=== PATIENT | male | born 1960 | race Caucasian/White ===

== ENCOUNTER 2019-09-25 01:36 | Outpatient (CLI) | payer OTHER, SELFPAY ==
[2019-09-25 17:56] LABS: SARS-CoV-2 RNA PCR Negative
== END 2019-09-25 01:37 | disposition home or self-care (01) ==
LOC: ANHCOVIDDT 01:36
PROVIDERS: PCP Family Medicine; Visit Provider Internal Medicine Gastroenterology
DX: Z01.818 Encounter for other preprocedural examination (principal); Z11.59 Encounter for screening for other viral diseases
CPT/HCPCS: 87635; C9803; U0003

== ENCOUNTER 2019-09-27 02:05 | Day surgery (SDC) | payer OTHER, SELFPAY ==
[2019-09-21 10:25] VITALS: BMI 24.9
[2019-09-27] MEDS: LACTATED RINGERS 1,000 ML 150 ML IV CONT (10:05)
[2019-09-27 10:18] VITALS: BP 123/76; PULSE 82; RESP 16; TEMP 36.8; O2SAT 97
--- NOTE | 2019-09-27 10:37 | WPDANESEPPF ---
Anes - Initial Pre Proc Eval Procedure: Operation Date: 09/27/19 10:30 Proposed Procedures p Screening Colonoscopy - Ck Vazquez DO Date/Time: 09/27/19 10:37 Surgeon: Ck Vazquez DO Pre Op Diagnosis: Neoplasm Screening Patient Data Age: 58 Gender: M Height: 5 ft 11 in Weight: 76.1 kg Last Vital Signs Temp 98.2 F 09/27/19 10:18 Pulse 82 09/27/19 10:18 Resp 16 09/27/19 10:18 BP 123/76 09/27/19 10:18 Pulse Ox 97 09/27/19 10:18 Allergies Allergy/AdvReac Type Severity Reaction Status Date / Time metoclopramide AdvReac Severe seizures Verified 09/27/19 09:57 Home Medications Medication Instructions Recorded Confirmed Type dicyclomine 20 mg tablet 20 mg PO QID #360 tablet 01/01/19 09/27/19 Rx prochlorperazine maleate 10 mg 10 mg PO Q8H PRN #90 tablet 01/01/19 09/27/19 Rx tablet lorazepam 1 mg tablet 1 mg PO BID PRN #60 tablet 09/04/19 09/27/19 Rx Patient hx anesthesia problems: none Family hx anesthesia problems: none PMFSH Social History Social History (Updated 08/17/19 @ 09:43 by Alise Sanz) Smoking packs per day: 2 Smoking cigarettes per day: 40.0 Years smoked: 20 Smoking pack-years: 40.00 Smoking status: Former smoker Tobacco type: cigarettes Second hand tobacco smoke exposure: No Smoking end date: 02/28/90 Alcohol intake: never Substance use: never Substance use type: does not use Gender identity (if verbalized by the patient): Male Anes - Eval Final PreProcedure Day of Procedure 09/27/19 10:37 Patient weight: normal Heart: regular rate and rhythm Lungs: clear to auscultation Airway: Mallampati scale class II Neurological: alert and oriented Last oral intake: >/= 8 hours ASA classification: II Emergent: no Anesthetic plan: proceed Anesthesia type and monitoring: general GIVS and standard monitoring Informed Consent: The patient's anesthetic plan and its attendant risks and benefits were discussed with the patient/family/POA. Questions were solicited and answers provided to the satisfaction of the patient/family/POA.
--- NOTE | 2019-09-27 10:55 | PM.IMHP ---
H&P: HPI History of Present Illness Chief complaint: Neoplasm Screening Narrative: Reason for visit colonoscopy. This very pleasant gentleman is here for evaluation at the request of his primary physician. Impression: Screening colonoscopy. Recommendation: Colonoscopy. History: Surface antigen is here for screening colonoscopy. His last colonoscopy was several years ago. His GI review systems unremarkable except for occasional diarrhea. Physical examination: General: very pleasant patient in no acute distress. HEENT: Head was normocephalic sclerae is clear mouth without masses neck was supple. Heart: Rate rhythm regular without S3 or S4. Lungs: CTA. Abdomen: Soft with no guarding or rigidity. Bowel sounds were active. Neurologic: Cranial nerves 2 through 12 intact. No focal defects. No clonus. Musculoskeletal system: Revealed no joint tenderness or swelling no muscle atrophy. Extremities: Reveal no significant edema. Skin: Warm and dry with normal turgor. Mental status: intact. Patient is alert and oriented. Review of Systems Review of Systems: All systems reviewed & are unremarkable except as noted in HPI and below PMFSH Past Medical History Medical History IFG (impaired fasting glucose) NOE (obstructive sleep apnea) PTSD (post-traumatic stress disorder) Pure hyperglyceridemia Surgical History Surgical History (Updated 09/27/19 @ 10:57 by Ck Vazquez DO) H/O colonoscopy Social History Social History (Updated 08/17/19 @ 09:43 by Alise Sanz) Smoking packs per day: 2 Smoking cigarettes per day: 40.0 Years smoked: 20 Smoking pack-years: 40.00 Smoking status: Former smoker Tobacco type: cigarettes Second hand tobacco smoke exposure: No Smoking end date: 02/28/90 Alcohol intake: never Substance use: never Substance use type: does not use Gender identity (if verbalized by the patient): Male Meds Home Medications and Allergies Home Medications Medication Instructions Recorded Confirmed Type dicyclomine 20 mg tablet 20 mg PO QID #360 tablet 01/01/19 09/27/19 Rx prochlorperazine maleate 10 mg 10 mg PO Q8H PRN #90 tablet 01/01/19 09/27/19 Rx tablet lorazepam 1 mg tablet 1 mg PO BID PRN #60 tablet 09/04/19 09/27/19 Rx Allergies Allergy/AdvReac Type Severity Reaction Status Date / Time metoclopramide AdvReac Severe seizures Verified 09/27/19 09:57 Vital Signs Vital Signs - 24 hr 09/27/19 10:18 Temperature 36.8 C Pulse Rate 82 Respiratory Rate 16 Blood Pressure 123/76 Pulse Oximetry 97
[2019-09-27 11:26] VITALS: BP 87/55; PULSE 65; RESP 20; O2SAT 97
[2019-09-27 11:36] VITALS: BP 85/54; PULSE 60; RESP 21; O2SAT 96
--- NOTE | 2019-09-27 11:40 | PM.IMHP ---
H&P: HPI History of Present Illness Chief complaint: Neoplasm Screening Narrative: Reason for visit EGD. Very pleasant gentleman seen at the request of the primary physician. Impression: this very pleasant gentleman is here for endoscopy to assess for underlying reflux disease. He complains of a bad taste in his mouth. He also has complaints of atypical chest pain. Patient does have a history of chronic diarrhea , especially in the morning. This may be secondary lying IBS. Underlying inflammatory neoplastic disease should be excluded. Patient does have a history of colon polyps. NOE. Nasal polyps. Asthma. Degenerative joint disease. Chronic back pain. Status post surgery. Recommendation: EGD. Colonoscopy will be scheduled. History: Three pleasant gentleman is being evaluated for a bad taste in mouth. Patient denies any heartburn, dysphagia or odynophagia. Complains of occasional sore throat. If he does have this chest pain that occurs after he eats. She had transient nature. The chest pain isn't exertional related. Denies any associated shortness of breath, dyspnea on exertion, nausea, diaphoresis or palpitations. The patient is here for an EGD to evaluate for allowing reflux disease. Patient reports diarrhea After awakening in the morning. Hematochezia, melena and acholic stools the night. He has a history of polyps. Physical examination: General: very pleasant patient in no acute distress. HEENT: Head was normocephalic sclerae is clear mouth without masses neck was supple. Heart: Rate rhythm regular without S3 or S4. Lungs: CTA. Abdomen: Soft with no guarding or rigidity. Bowel sounds were active. Neurologic: Cranial nerves 2 through 12 intact. No focal defects. No clonus. Musculoskeletal system: Revealed no joint tenderness or swelling no muscle atrophy. Extremities: Reveal no significant edema. Skin: Warm and dry with normal turgor. Mental status: intact. Patient is alert and oriented. Review of Systems Review of Systems: All systems reviewed & are unremarkable except as noted in HPI and below PMFSH Past Medical History Medical History IFG (impaired fasting glucose) NOE (obstructive sleep apnea) PTSD (post-traumatic stress disorder) Pure hyperglyceridemia Surgical History Surgical History H/O colonoscopy Social History Social History (Updated 08/17/19 @ 09:43 by Alise Sanz) Smoking packs per day: 2 Smoking cigarettes per day: 40.0 Years smoked: 20 Smoking pack-years: 40.00 Smoking status: Former smoker Tobacco type: cigarettes Second hand tobacco smoke exposure: No Smoking end date: 02/28/90 Alcohol intake: never Substance use: never Substance use type: does not use Gender identity (if verbalized by the patient): Male Meds Home Medications and Allergies Home Medications Medication Instructions Recorded Confirmed Type dicyclomine 20 mg tablet 20 mg PO QID #360 tablet 01/01/19 09/27/19 Rx prochlorperazine maleate 10 mg 10 mg PO Q8H PRN #90 tablet 01/01/19 09/27/19 Rx tablet lorazepam 1 mg tablet 1 mg PO BID PRN #60 tablet 09/04/19 09/27/19 Rx Allergies Allergy/AdvReac Type Severity Reaction Status Date / Time metoclopramide AdvReac Severe seizures Verified 09/27/19 09:57 Vital Signs Vital Signs - 24 hr 09/27/19 10:18 09/27/19 11:26 09/27/19 11:36 Temperature 36.8 C Pulse Rate 82 65 60 Respiratory Rate 16 20 21 H Blood Pressure 123/76 87/55 L 85/54 L Pulse Oximetry 97 97 96
[2019-09-27 11:46] VITALS: BP 124/83; PULSE 58; RESP 19; O2SAT 100
[2019-09-27 11:56] VITALS: BP 133/83; PULSE 55; RESP 18; O2SAT 100
== END 2019-09-27 12:06 | disposition home or self-care (01) ==
PROVIDERS: PCP Family Medicine; Visit Provider Internal Medicine Gastroenterology
PROC: 0DJD8ZZ Inspection of Lower Intestinal Tract, Via Natural or Artificial Opening Endoscopic (ICD-10-PCS; CPT 45378; principal; 2019-09-27 10:30)
DX: Z12.11 Encounter for screening for malignant neoplasm of colon (principal); K52.9 Noninfective gastroenteritis and colitis, unspecified; Z87.891 Personal history of nicotine dependence; E78.1 Pure hyperglyceridemia; G47.33 Obstructive sleep apnea (adult) (pediatric); F43.10 Post-traumatic stress disorder, unspecified
CPT/HCPCS: 45380; 88305; J2704; J7120

== ENCOUNTER → 2021-03-27 09:13 | Outpatient (CLI) | payer OTHER, SELFPAY ==
[2021-03-27 13:27] LABS: Influenza A QL RT-PCR Negative (Negative); Influenza B QL RT-PCR Negative (Negative); SARS-CoV-2 RNA PCR Negative
== END ==
PROVIDERS: PCP Family Medicine; Visit Provider Physician Assistant
DX: R05.9 Cough, unspecified (principal); R68.89 Other general symptoms and signs; Z20.822 Contact with and (suspected) exposure to COVID-19
CPT/HCPCS: 87502; C9803; U0003; U0005

== ENCOUNTER → 2022-04-16 08:34 | Outpatient (CLI) | payer OTHER, SELFPAY ==
--- NOTE | ~2022-04-16 | US_ITS ---
EXAMINATION: US abdomen limited DATE: 04/16/2022 08:52 INDICATION: Elevated liver function tests TECHNIQUE: Multiple grayscale and Doppler ultrasound images of the abdomen were obtained. COMPARISON: 08/17/2017 FINDINGS: Bowel gas obscures visualization of the pancreas. The visualized portions of the pancreas a re unremarkable. The liver is normal with normal echogenicity and echotexture. No surface nodularity. Normal hepatopetal flow in the main portal vein. The gallbladder is surgically absent. The normal co mmon bile duct measures 4 mm. IMPRESSION: 1. No sonographic correlate for the patient's symptoms. Reviewed, dictated and finalized at location B. R ARTIST
== END ==
PROVIDERS: PCP Family Medicine; Visit Provider Physician Assistant
DX: R94.5 Abnormal results of liver function studies (principal); R55 Syncope and collapse; R11.0 Nausea
CPT/HCPCS: 76705

== ENCOUNTER → 2023-03-30 11:41 | Outpatient (CLI) | payer OTHER, SELFPAY ==
--- NOTE | ~2023-03-30 | XR_ITS ---
AP view of the pelvis Clinical history: Pain Findings: No acute fracture or dislocation is seen. Osseous alignment is anatomic. Bilateral hip and SI joint spaces are preserved. Soft tissues are unremarkable. Impression: No significant abnormality is seen. Reviewed, dictated and finalized at location M. UMER INSIGHT ANALYST Impression: No significant abnormality is seen.
== END ==
PROVIDERS: PCP Family Medicine; Visit Provider Family Medicine
DX: R10.2 Pelvic and perineal pain (principal)
CPT/HCPCS: 72170

== ENCOUNTER 2024-03-30 11:47 | Outpatient (CLI) | payer MEDICARE, SELFPAY ==
--- NOTE | ~2024-03-30 | CT_ITS ---
EXAMINATION: CT sinus wo con DATE: 03/30/2024 12:02 INDICATION: Chronic sinusitis TECHNIQUE: Computed tomography (CT) of the paranasal sinuses was performed without intravenous contra st. The dose-length product was 256.12 mGy-cm. Automated exposure control and iterative reconstructio n technique were employed. COMPARISON: None FINDINGS: There is mucosal thickening of the frontal, ethmoid, sphenoid sinuses. Ostiomeatal units ar e patent. Leftward nasal septal deviation. Small left mastoid effusion. No mucoperiosteal reaction. IMPRESSION: 1. Mild sinus disease. Reviewed, dictated and finalized at location A. LATORY AFFAIRS COORDINATOR IMPRESSION: 1. Mild sinus disease.
== END 2024-03-30 11:48 | disposition home or self-care (01) ==
LOC: MICIMG 11:48
PROVIDERS: PCP Family Medicine; Visit Provider Nurse Practitioner Family
DX: J32.9 Chronic sinusitis, unspecified (principal)
CPT/HCPCS: 70486

== ENCOUNTER 2024-11-24 07:02 | Emergency (ER) | payer MEDICARE, SELFPAY ==
--- NOTE | ~2024-11-24 | CT_ITS ---
EXAMINATION: CT lumbar spine wo con DATE: 11/24/2024 07:45 INDICATION: Low back pain. TECHNIQUE: Computed tomography (CT) of the lumbar spine was performed without intravenous contrast. Automated exposure control and iterative reconstruction technique were employed. The dose-length product was 299.48 mGy-cm. COMPARISON: CT abdomen and pelvis 03/24/2018 FINDINGS: There is mild left hydronephrosis and hydroureter. There is 2 mm anterolisthesis of L4 on L5. There is 5 degrees levocurvature of lumbar spine. There is mild chronic anterior wedging of T12 and L1 vertebral bodies. There is mildly decreased disc height at L3-L4 and moderately decreased disc height at L4-L5. The following disc levels are specifically discussed: L1-L2: The disc does not extend beyond the endplate margin. There is mild bilateral facet joint osteoarthritis. There is no neural foraminal stenosis. There is no central canal stenosis. L2-L3: The disc does not extend beyond the endplate margin. There is moderate bilateral facet joint osteoarthritis. There is no neural foraminal stenosis. There is no central canal stenosis. L3-L4: The disc is bulging. There is severe bilateral facet joint osteoarthritis. There is mild bilateral neural foraminal stenosis. There is mild central canal stenosis. L4-L5: The disc is bulging. There is severe bilateral facet joint osteoarthritis. There is moderate right and mild left neural foraminal stenosis. There is mild central canal stenosis. L5-S1: The disc is bulging. There is severe bilateral facet joint osteoarthritis. There is mild bilateral neural foraminal stenosis. There is mild central canal stenosis. IMPRESSION: 1. Mild left hydronephrosis and hydroureter, stable from 03/24/2018. 2. Moderate lumbar spondylosis. Reviewed, dictated and finalized at location E.
--- NOTE | ~2024-11-24 | CT_ITS ---
CHEST ABDOMEN PELVIS WITH CONTRAST CLINICAL HISTORY: Malignancy . COMPARISON: None available TECHNIQUE: Helical CT performed from thoracic inlet to symphysis pubis IV contrast information not listed in PACS Coronal, sagittal reformats. Multi planar MIPS CT images acquired with automatic exposure control for dose reduction DLP: 407 mGy-cm FINDINGS: CHEST- Lungs/Pleura: Large mass occupying large portion of left upper lobe, with postobstructive atelectasis. Thoracic Aorta: No dissection. No aneurysm. Pulmonary arteries: Normal caliber. Severely attenuated branches left upper lobe from mass. No PE identified Heart: Unremarkable. Tracheobronchial tree: Occluded/intubated left upper lobe bronchus. Nodes: Mediastinal nodes. Bilateral hilar lymph nodes. Bones: No acute bony abnormality. Soft tissues: Unremarkable. ABDOMEN/PELVIS- Liver: Mild intrahepatic biliary ductal dilatation after cholecystectomy. Gallbladder: Unremarkable. Spleen: Unremarkable. Pancreas: Unremarkable. Adrenal glands: Unremarkable. Kidneys: Right kidney- No hydronephrosis. No renal stones. Left kidney- No hydronephrosis. No renal stones. Distal esophagus/stomach: Slight twisting configuration at GE junction, question prior fundoplication. Small bowel loops: Normal caliber and wall thickness. Colon: Mild wall thickening descending segment with subtle surrounding inflammation. Normal RLQ appendix. Nodes: No enlarged nodes. Peritoneum: No ascites. No free air. Urinary bladder: Unremarkable. Prostate: Unremarkable. Bones: No acute bony abnormality. Soft tissues: Small inguinal hernias, left side containing knuckle of bowel. Aorta: No aneurysm or dissection. IVC: Unremarkable. Main portal vein/SMV/splenic vein: Patent. IMPRESSION: CHEST- 1. Large mass left upper lung consistent with malignancy. 2. Mediastinal and bilateral hilar metastatic nodes. ABDOMEN/PELVIS- 1. No evidence of malignancy. 2. Suspect distal colitis. Reviewed, dictated and finalized at location R.
--- NOTE | ~2024-11-24 | CT_ITS ---
EXAMINATION: CT hip RT wo con DATE: 11/24/2024 07:45 INDICATION: Right hip pain. TECHNIQUE: Computed tomography (CT) of the right hip was performed without intravenous contrast. Automated exposure control and iterative reconstruction technique were employed. The dose-length product was 183.28 mGy-cm. COMPARISON: Pelvis radiograph 03/30/2023, CT abdomen and pelvis 11/28/2017 FINDINGS: The prostate is mildly enlarged. Alignment is normal. No fracture. There is new sclerosis in right iliac wing. There is moderate right hip osteoarthritis. IMPRESSION: 1. New sclerosis in right iliac wing, consistent with metastatic disease. 2. Moderate right hip osteoarthritis. Reviewed, dictated and finalized at location E.
[2024-11-24 07:12] VITALS: BP 141/81; PULSE 60; RESP 16; TEMP 36.6; O2SAT 99
--- NOTE | 2024-11-24 07:19 | ED.GENADULT ---
HPI - General Adult General Chief complaint: Extremity Problem,Nontraumatic Stated complaint: hip pain Time Seen by Provider: 11/24/24 07:18 Source: patient Mode of arrival: ambulatory Limitations: no limitations History of Present Illness HPI narrative: 64 years old white male came to the ED with his by private car from home complaining of right lower back pain and right hip pain started months ago. Was seen by his family physician 5 days ago and is telling me that he had a negative CT scan of the lumbar spine. Patient currently on Tylenol, ibuprofen as needed. Patient denies any recent trauma or numbness or tingling or radiation of pain. Pain is dull aching, steady, worse with standing and walking, slightly better at rest. Related Data Allergies Allergy/AdvReac Type Severity Reaction Status Date / Time metoclopramide AdvReac Severe seizures Verified 11/24/24 07:16 Review of Systems Review of Systems: All systems reviewed & are unremarkable except as noted in HPI and below PMFSH Past Medical History Medical History Pancreatic insufficiency IFG (impaired fasting glucose) NOE (obstructive sleep apnea) PTSD (post-traumatic stress disorder) Pure hyperglyceridemia Surgical History Surgical History H/O colonoscopy Family History Family History Father Patient's father is Other Family history of cardiovascular disease Social History Social History Smoking packs per day: 2 Smoking cigarettes per day: 40.0 Years smoked: 20 Smoking pack-years: 40.00 Smoking status: Former smoker Tobacco type: cigarettes Second hand tobacco smoke exposure: No Smoking end date: 02/28/90 Alcohol intake: never Substance use: never Substance use type: does not use Do You Feel Safe in your Home?: Yes Lack of Transportation: No Lack of Food: Never True Current Housing: I Have Housing Concerned About Future Housing: No Difficulty Paying Gas/Electric Bills: No Difficulty Paying for Meds: No Currently Unemployed: No Education: Trade/Vocational Certificate Difficulty w/ Childcare or Family Care: No Living arrangements: with family Occupation/Education: retired 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 Musculoskeletal: Mild tenderness right lower back, no bruises, no swelling, no rash, right hip exam showed no swelling, no deformity, pain for range of motion Neurologic: Alert and oriented ?3, CORRECTIONAL CAPTAIN is normal as tested, no gross motor deficit, negative right leg straight raising test Course Vital Signs Vital signs: Vital Signs Temperature 36.6 C 11/24/24 07:12 Pulse Rate 60 11/24/24 07:12 Respiratory Rate 16 11/24/24 07:12 Blood Pressure 141/81 H 11/24/24 07:12 Pulse Oximetry 99 11/24/24 07:12 Oxygen Delivery Room Air 11/24/24 07:12 Temperature 36.6 C 11/24/24 07:12 Pulse Rate 80 11/24/24 09:42 Respiratory Rate 18 11/24/24 09:42 Blood Pressure 150/76 H 11/24/24 09:42 Pulse Oximetry 96 11/24/24 09:42 Oxygen Delivery Room Air 11/24/24 07:12 Medical Decision Making [facility] Narrative Medical decision making narrative: patient came to the ED with right lower back pain and right hip pain No trauma Vital signs showing blood pressure 141/81 otherwise within normal limit Physical examination showing [id number] tenderness the right buttock, no bruises, no swelling or rash Differential diagnosis sacroiliac joint inflammation, musculoskeletal, arthritis, sprain, strain. CT lumbar spine and right hip without contrast showed new sclerosis in the right iliac wing consistent with metastatic disease, right hip osteoarthritis. Blood workup today includes CBC and CMP showed elevated liver enzyme otherwise within normal limit. AST 197, ALT 53, alkaline phosphatase 190. CT chest abdomen and pelvis with IV contrast showed large mass left upper lung consistent with malignancy, mediastinal and bilateral hilar metastatic node Diagnosis lung mass with mediastinal and bone metastasis Patient was advised to follow-up with his family physician for pulmonary referral and further evaluation. Discharged on [place] for pain management the pt was discharged to home.the pt,s condition upon discharge was fair,education was provided to the pt in reference to the final impression,discharge study results,treatment,prognosis and need for follow up . Vital Signs Vital Signs: Vital Signs Temperature 36.6 C 11/24/24 07:12 Pulse Rate 60 11/24/24 07:12 Respiratory Rate 16 11/24/24 07:12 Blood Pressure 141/81 H 11/24/24 07:12 Pulse Oximetry 99 11/24/24 07:12 Oxygen Delivery Room Air 11/24/24 07:12 Temperature 36.6 C 11/24/24 07:12 Pulse Rate 80 11/24/24 09:42 Respiratory Rate 18 11/24/24 09:42 Blood Pressure 150/76 H 11/24/24 09:42 Pulse Oximetry 96 11/24/24 09:42 Oxygen Delivery Room Air 11/24/24 07:12 Lab Data 11/24/24 09:08 11/24/24 09:08 Labs: Lab Results 11/24/24 11/24/24 Range/Units 09:08 10:10 WBC 9.6 (4.5-10.0) K/mm3 RBC 4.53 L (4.6-6.20) M/mm3 Hgb 12.7 L (14.0-18.0) g/dL Hct 40.1 L (42.0-52.0) % MCV 88.5 (80-100) fl MCH 28.0 (26-34) pg MCHC 31.7 L (32-36) g/dl RDW 13.2 (11.5-14.5) % Plt Count 286 (150-375) k/mm3 MPV 8.5 (7.4-10.4) fl Immature Gran % (Auto) 0.6 H (0-0.5) % Neut % (Auto) 74.9 H (45.5-73.1) % Lymph % (Auto) 14.8 L (18.3-44.2) % [place] % (Auto) 8.1 (2.6-8.5) % Eos % (Auto) 1.0 (0-4.4) % Baso % (Auto) 0.6 (0.2-1.2) % Lymph # (Auto) 1.43 (0.9-3.2) K/mm3 [place] # (Auto) 0.8 H (0.1-0.6) K/mm3 Eos # (Auto) 0.1 (0-0.3) K/mm3 Baso # (Auto) 0.1 (0.0-0.1) K/mm3 Abs Immat Gran (auto) 0.06 H (0.00-0.031) K/mm3 Absolute Neuts (auto) 7.2 H (1.3-6.7) K/mm3 Absolute Nucleated RBC 0.000 (0.0-0.012) K/mm3 Nucleated RBC % 0.0 (0.0-0.2) % Sodium 138 (137-145) mmol/L Potassium 4.8 (3.4-5.0) mmol/L Chloride 103 (98-107) mmol/L Carbon Dioxide 32 H (22-30) mmol/L Anion Gap 3 L (4-12) mmol/L BUN 15 (9-20) mg/dL Creatinine 0.84 (0.7-1.3) mg/dL Estim Creat Clear Calc 73 ml/min Estimated GFR > 60 (59 - ) Glucose 109 (65-110) mg/dL Calcium 9.3 (8.4-10.2) mg/dL Total Bilirubin 0.5 (0.2-1.3) mg/dL AST 197 H (17-59) U/L ALT 53 H (6-50) U/L Alkaline Phosphatase 190 H (38-126) U/L Total Protein 7.4 (6.3-8.2) g/dL Albumin 3.9 (3.5-5.1) g/dL Urine Color Yellow (Yellow) Urine Appearance Clear (Clear) Urine pH 6.5 (5.0-9.0) Ur Specific [place] 1.008 (1.001-1.035) Urine Protein Negative (Negative) mg/dL Urine Glucose (UA) Negative (Negative) mg/dL Urine Ketones Negative (Negative) mg/dL Ur Blood (Man) Negative (Negative) Urine Nitrate Negative (Negative) Urine Bilirubin Negative (Negative) Urine Urobilinogen 0.2 (<2.0) mg/dL Leukocyte Esterase Rfl Negative (Negative) ABEL/UL Imaging Data My impression: CT chest abdomen and pelvis with IV contrast showed Large mass left upper lung consistent with malignancy, mediastinal and bilateral hilar metastatic nodes. Radiologist's impression: Impressions Lumbar Spine CT 11/24/24 08:18 IMPRESSION: 1. Mild left hydronephrosis and hydroureter, stable from 03/24/2018. 2. Moderate lumbar spondylosis. Hip CT 11/24/24 08:21 IMPRESSION: 1. New sclerosis in right iliac wing, consistent with metastatic disease. 2. Moderate right hip osteoarthritis. Critical Care Time Critical Care Time Critical Care Time: No Discharge Plan Discharge Clinical Impression: Mass of left lung, Metastasis to bone Patient Disposition: Home Condition: Stable Instructions: Acute Low Back Pain (ED) Additional Instructions: Return if symptoms are worsening , call your family physician for appointment, take ibuprofen as as needed for aches and pain, continue home medications. Patient Language: Kyrgyz Prescriptions: New hydrocodone-acetaminophen 5-325 mg tablet 1 tablet PO Q4H Qty: 30 0RF No Action pantoprazole 40 mg tablet,delayed release (DR/EC) 40 mg PO QAM Qty: 30 2RF lorazepam 1 mg tablet 1 mg PO BID PRN (Reason: ptsd) Qty: 60 0RF hydrocodone-acetaminophen 5-325 mg tablet 1 tablet PO Q6H PRN (Reason: pain) Qty: 30 0RF prochlorperazine maleate 10 mg tablet 10 mg PO Q8H PRN (Reason: nausea and vomiting) Qty: 30 0RF Follow-up/Referrals: Vahe Espinoza MD [Primary Care Provider, Family Practice]
[2024-11-24] MEDS: ONDANSETRON HCL ODT 4 MG TABLET PO (07:43)
[2024-11-24] MEDS: IBUPROFEN 600 MG TABLET PO (07:43)
[2024-11-24] MEDS: HYDROmorphone HCL INJ (*CRX) 1 MG/ML SYR IM (07:43)
--- OUTSIDE RECORDS SUMMARY | 2024-11-24 07:52 | XMS_ITS | Clinical Summary ---
Author Organization [facility] Address [address] [place] [address] Care Team Providers Care Nurses Supervisor Name Role Phone Lorraine Ortiz MD Primary Care Provider [phone] Encounters Date Type Department Care Team Description 11/20/2024 4:14 PM CDT - 11/20/2024 11:59 PM CDT Hospital Encounter [facility] [address] [place] [address] Lorraine Ortiz MD Discharge Disposition: Home or Self Care (Routine Discharge) 11/20/2024 Travel from Last 3 Months Social History Tobacco Use Types Packs/Day Years Used Date Smoking Tobacco: Never Assessed Sex and Gender Information Value Date Recorded Sex Assigned at Male 11/15/2024 2:50 PM CDT Legal Sex Male 6:46 PM CDT Gender Identity Not on file Sexual Orientation Not on file Last Filed Vital Signs Vital Sign Reading Time Taken Comments Blood Pressure 120/80 09/26/2013 1:35 PM CDT Pulse - - Temperature - - Respiratory Rate - - Oxygen Saturation - - Inhaled Oxygen Concentration - - Weight 75.8 kg (167 lb) 09/26/2013 1:35 PM CDT Height 177.8 cm (5' 10) 09/26/2013 1:35 PM CDT Body Mass Index 23.96 09/26/2013 1:35 PM CDT Plan of Treatment Health Maintenance Due Date Last Done Comments Hepatitis C 1976 Colorectal Cancer Screening Colonoscopy (10 Years) 11/29/2019 11/28/2009 Annual Medicare Wellness Visit 11/04/2023 COVID-19 Vaccine (2023-2 5 season) 2024 DTaP, Tdap and Td Vaccines ( 2 - Td or Tdap) 12/03/2025 12/04/2015 RSV Immunization or 60+ Years (1 - 1-dose 75+ series) 2033 Zoster Vaccines Completed 08/11/2022, 06/09/2022 Pneumococcal Vaccine: 50+ Years Completed 12/13/2023, 10/26/2011 Meningococcal B Vaccine Aged Out No l onger eligible based on patient's age to complete this topic Meningococcal Vaccine Aged Out No dayan liya eligible based on patient's age to complete this topic RSV Immunizations Under 20 Months Aged Out No longer eligible b ased on patient's age to complete this topic Procedures Procedure Name Priority Date/Time Associated Diagnosis Comments CT ABD+PEL WO CON Routine 11/20/2024 4:3 2 PM CDT Other specified dorsopathies, lumbosacral region COLONOSCOPY Routine 11/28/2009 12:00 AM CDT from Last 3 Months or Most Recently Relevant to Health Maintenance Results * CT ABD+PEL WO CON (11/20/2024 4:32 PM CDT) Anatomical Region Laterality Modality Abdomen Computed Tomogra phy 11/20/2024 8:33 PM CDT Impressions 11/20/2024 8:37 PM CDT IMPRESSION: 1. No acute abnormality is seen within the abdomen or pelvis. 2. Multilevel degenerative changes of the lumbar spine. Please refer to the concurrently performed CT of lumbar spine report dated 11/20/2024 for additional details. 3. Status post cholecystectomy. Ordered By: LORRAINE ORTIZ Interpreted By: Sarah Deshpande MD, 11/20/2024 8:33 PM Narrative 11/20/2024 8:37 PM CDT [address] [address] PROCEDURE: CT ABD+PEL WO CON HISTORY: Right hip pain. TECHNIQUE: Helical CT of the abdomen and pelvis was performed without intravenous contrast. A dose lowering technique was used for this procedure, which may include, but is not limited to, dose reduction technique, automated exposure control, the use of iterative reconstruction, and ALARA (As Low As Reasonably Achievable) / Image Gently techniques. COMPARISON: None. FINDINGS CT ABDOMEN/PELVIS: Lower thorax: The lung bases are clear. The heart size is normal. Liver: The liver is normal in size. No intrahepatic mass is seen on this non- contrast exam. Biliary tree: The patient is post cholecystectomy. There is no biliary ductal dilatation. Spleen: The spleen is normal in size. Pancreas: The pancreas is normal in size. There are no pancreatic calcifications. The pancreatic duct is not dilated. Adrenal glands: The adrenal glands are normal in size and shape. Kidneys: There is no hydronephrosis. No renal stones are seen. Lymph nodes: Abdomen: There is no abdominal adenopathy. Pelvis: There is no pelvic adenopathy. Vasculature: There is no abdominal aortic aneurysm. Atherosclerotic calcification is seen. Peritoneum/mesentery/omentum: There is no free fluid or free air. GI tract: There is no bowel obstruction. The appendix is normal. There is no abnormal bowel wall thickening to suggest acute inflammation. Pelvic urogenital structures:The bladder is poorly distended and not well evaluated. The prostate is present. Body wall: There are degenerative changes in the spine. No aggressive osseous lesions identified. Mild bilateral hip degenerative changes. Limitations: Evaluation of the solid parenchymal organs and vasculature is limited due to lack of intravenous contrast. Martinez: (S/I) = series number / image number Procedure Note Sarah Deshpande MD - 11/20/[address] [address] PROCEDURE: CT ABD+PEL WO CON HISTORY: Right hip pain. TECHNIQUE: Helical CT of the abdomen and pelvis was performed withoutintravenous contrast. A dose lowering technique was used for this procedure, which may include,but is not limited to, dose reduction technique, automated exposurecontrol, the use of iterative reconstruction, and ALARA (As Low AsReasonably Achievable) / Image Gently techniques. COMPARISON: None. FINDINGS CT ABDOMEN/PELVIS: Lower thorax: The lung bases are clear. The heart size is normal. Liver: The liver is normal in size. No intrahepatic mass is seen on thisnon- contrast exam. Biliary tree: The patient is post cholecystectomy. There is no biliaryductal dilatation. Spleen: The spleen is normal in size. Pancreas: The pancreas is normal in size. There are no pancreaticcalcifications. The pancreatic duct is not dilated. Adrenal glands: The adrenal glands are normal in size and shape. Kidneys: There is no hydronephrosis. No renal stones are seen. Lymph nodes: Abdomen: There is no abdominal adenopathy. Pelvis: There is no pelvic adenopathy. Vasculature: There is no abdominal aortic aneurysm. Atheroscleroticcalcification is seen. Peritoneum/mesentery/omentum: There is no free fluid or free air. GI tract: There is no bowel obstruction. The appendix is normal. There isno abnormal bowel wall thickening to suggest acute inflammation. Pelvic urogenital structures:The bladder is poorly distended and not wellevaluated. The prostate is present. Body wall: There are degenerative changes in the spine. No aggressiveosseous lesions identified. Mild bilateral hip degenerative changes. Limitations: Evaluation of the solid parenchymal organs and vasculature islimited due to lack of intravenous contrast. Martinez: (S/I) = series number / image number IMPRESSION: 1. No acute abnormality is seen within the abdomen or pelvis. 2. Multilevel degenerative changes of the lumbar spine. Please refer tothe concurrently performed CT of lumbar spine report dated 11/20/2024 foradditional details. 3. Status post cholecystectomy. Ordered By: LORRAINE ORTIZ Interpreted By: Sarah Deshpande MD, 11/20/2024 8:33 PM us Lorraine Ortiz MD CT Final Resu lt * Colonoscopy (11/28/2009 12:00 AM CDT) 11/28/2009 11/28/2009 Narrative TOUCHWORKS TO EPIC CONVERSION - 11/28/2009 12:00 AM CDT Documented hx of procedure Procedure Note Rose Woo MD - 05/18/2018 Documented hx of procedure us Rose Power Md, MD GI PROCEDURE ORDERABLES Final Result TOUCHWORKS TO EPIC CONVERSION from Last 3 Months or Most Recently Relevant to Health Maintenance Insurance MEDICARE Care Teams Nurses Supervisor Relationship Specialty Start Date End Date Lorraine Ortiz MD [address] [place] [address] PCP - General FAMILY PRACTICE 11/15/24
--- OUTSIDE RECORDS SUMMARY | 2024-11-24 07:52 | XMS_ITS | Clinical Summary ---
Author Organization [facility] Address [address] [place] [address] Care Team Providers Care Rotating Equipment Specialist Name Role Phone Vahe Espinoza MD Primary Care Provider [phone] Source Comments [facility],non-owned Affiliates and Associated Physician Practices is amultiple site organization consisting of ambulatory clinics and hospital sitesin [place], [place], [place] and [place]. This disclosure is being madepursuant to the Care Everywhere program and may not contain all information available regarding this patient. Last updated 17.[facility] [place] Allergies No known active allergies Medications * Be aware that medications may not be up to date on this document. Alwaysverify current medications with the patient. LORazepam (Ativan) 1 MG tablet Take 1 (one) tablet by mouth 2 times daily 01/13/2022 Active prochlorperazine (Compazine) 10 MG tablet Take 1 (one) tablet by mouth every 8 hours as needed 10/19/2021 Active Active Problems No known active problems Immunizations Immunization Administration Dates Next Due FLU VACCINE TRI IIV3 SPLIT I M (FLUVIRIN) 11/18/2016 INFLUENZA VACCINE 11/28/2017 INFLUENZA VACCINE, CELL CULT URE, QUADR. (FLUCELVAX QUADRIVALENT; 6MO+) (CCIIV4) 01/03/2021 INFLUENZA VACCINE, QUADR. (F LUZONE; FLULAVAL; FLUARIX; AFLURIA QUADRIVALENT; 6MO+), 0.5 ML (IIV4) 12/07/2021,12/01/2019,11/29/2018,2017 INFLUENZA VACCINE, TRIV. (FL UZONE; FLULAVAL; FLUARIX; AFLURIA TRIVALENT; 6MO+), 0.5 ML (IIV3) 12/01/2015,11/27/2014 TDAP, HISTORIC VACCINE 12/04/2015 Social History Tobacco Use Types Packs/Day Years Used Date Smoking Tobacco: Never Smokeless Tobacco: Never Tobacco Cessation:Counseling Given: Not Answered Alcohol Use Standard Drinks/Week Comments Yes 1 (1 standard drink = 0.6 oz pur e alcohol) Sex and Gender Information Value Date Recorded Sex Assigned at Not on file Legal Sex Male 10:32 AM CDT Gender Identity Not on file Sexual Orientation Not on file Last Filed Vital Signs Vital Sign Reading Time Taken Comments Blood Pressure 148/89 03/12/2022 9:03 AM BUSINESS SUPPORT COORDINATOR Pulse 57 03/12/2022 9:03 AM BUSINESS SUPPORT COORDINATOR Temperature 36.2 C (97.2 F) 03/12/2022 9:03 AM BUSINESS SUPPORT COORDINATOR Respiratory Rate - - Oxygen Saturation - - Inhaled Oxygen Concentration - - Weight 78.9 kg (174 lb) 03/12/2022 9:03 AM BUSINESS SUPPORT COORDINATOR Height 180.3 cm (5' 11) 03/12/2022 9:03 AM BUSINESS SUPPORT COORDINATOR Body Mass Index 24.27 03/12/2022 9:03 AM BUSINESS SUPPORT COORDINATOR Plan of Treatment Health Maintenance Due Date Last Done Comments COLOGUARD (AGES 45-75) - COLON CA SCREENING 1958 COLON MONITORING 1958 COLONOSCOPY - COLON CA SCREENING 1958 CT COLONOGRAPHY - COLON CA SCREENING 1960 Colorectal Cancer Screening 1958 FIT - COLON CA SCREENING 1958 FLEX SIG - COLON CA SCREENING 1958 LIPID TESTING 1958 HEPATITIS C SCREENING 10/29/1976 PNEUMOCOCCAL VACCINE 50+ (1 of 1 - PCV) 2008 ZOSTER VACCINE (1 of 2) 2008 DEPRESSION SCREENING 02/29/2024 COVID-19 VACCINE (1 - 2023- season) 2024 INFLUENZA VACCINE (#1) 2024 2, 01/03/2021, 12/01/2019, Additional history exists DTAP/TDAP/TD VACCINES (2 - Td or Tdap) 12/03/2025 12/04/2015 Respiratory Syncytial Virus (RSV) Vaccine Pt: or over 60 yrs (1 - 1-dose 75+ series) 2033 HEPATITIS B VACCINE Aged Out No longe r eligible based on patient's age to complete this topic HIB VACCINE Aged Out No longer eligi ble based on patient's age to complete this topic HPV VACCINE Aged Out No longer eligi ble based on patient's age to complete this topic MENINGOCOCCAL (Group B) VACCINE SHARED DECISION-MAKING Aged Out No longer eligible based on patient's age to complete this topic MENINGOCOCCAL GROUPS A/C/Y/W VACCINE Aged Out No longer eligible based on patient's age to complete this topic Insurance [facility] Care Teams Rotating Equipment Specialist Relationship Specialty Start Date End Date Vahe Espinoza MD [address] [place] [address] PCP - General 01/25/22
[2024-11-24 09:18] LABS: Hematocrit 40.1 % (42.0-52.0); Hemoglobin 12.7 g/dL (14.0-18.0); Immature Granulocyte Percent A 0.6 % (0-0.5); Lymphocytes Absolute Auto 1.43 K/mm3 (0.9-3.2); Mean Corpuscular HGB Conc 31.7 g/dl (32-36); Mean Corpuscular Hemoglobin 28.0 pg (26-34); Mean Corpuscular Volume 88.5 fl (80-100); Nucleated Red Blood Cells Absolute Auto 0.000 K/mm3 (0.0-0.012); Nucleated Red Blood Cells Perc 0.0 % (0.0-0.2); Platelet Count Result 286 k/mm3 (150-375); Red Blood Count 4.53 M/mm3 (4.6-6.20); White Blood Count 9.6 K/mm3 (4.5-10.0)
[2024-11-24 09:30] LABS: Alanine Aminotransferase 53 U/L (6-50); Albumin Level 3.9 g/dL (3.5-5.1); Alkaline Phosphatase 190 U/L (38-126); Anion Gap 3 mmol/L (4-12); Aspartate Amino Transferase 197 U/L (17-59); Bilirubin,Total 0.5 mg/dL (0.2-1.3); Blood Urea Nitrogen 15 mg/dL (9-20); Calcium 9.3 mg/dL (8.4-10.2); Carbon Dioxide 32 mmol/L (22-30); Chloride 103 mmol/L (98-107); Estimated CRCL calculation 73 ml/min; Estimated Glomerular Filt Rate > 60; Glucose 109 mg/dL (65-110); Potassium 4.8 mmol/L (3.4-5.0); Sodium 138 mmol/L (137-145); Total Protein 7.4 g/dL (6.3-8.2)
[2024-11-24] MEDS: SODIUM CHLORIDE 0.9% IV 1,000 ML 999 ML IV CONT (09:30)
[2024-11-24 09:42] VITALS: BP 150/76; PULSE 80; RESP 18; O2SAT 96
[2024-11-24 10:19] LABS: Add Urine Microscopic? NO; Appearance Urine Clear (Clear); Glucose Urine UA Negative (Negative); Leukocyte Esterase Ur Negative LEU/UL (Negative); Nitrate Urine Negative (Negative); Specific Grav Ur 1.008 (1.001-1.035)
== END 2024-11-24 11:27 | disposition home or self-care (01) ==
PROVIDERS: Emergency Provider Emergency Medicine; PCP Family Medicine
DX: R91.8 Other nonspecific abnormal finding of lung field (principal); C79.51 Secondary malignant neoplasm of bone; M54.50 Low back pain, unspecified; M25.551 Pain in right hip; M16.11 Unilateral primary osteoarthritis, right hip; Z87.891 Personal history of nicotine dependence
CPT/HCPCS: 36415; 71260; 72131; 73700; 74177; 80053; 81003; 85025; 96360; 96372; 99284; A9270; J1171; J7030; Q9967

== ENCOUNTER 2024-12-14 09:59 | Outpatient (CLI) | payer MEDICARE, SELFPAY ==
--- NOTE | ~2024-12-14 | MR_ITS ---
EXAMINATION: MR lumbar spine wo con DATE: 12/14/2024 10:34 INDICATION: Lumbar radicular pain. TECHNIQUE: Magnetic resonance imaging (MRI) of the lumbar spine was performed without intravenous contrast. Sequences included sagittal T2-weighted FSE, sagittal T2-weighted FS FSE, sagittal T1-weighted FSE, and axial T2-weighted FSE. COMPARISON: MRI spine CT 11/24/2024 FINDINGS: There is 6 degrees levocurvature of lumbar spine. There is mild chronic anterior wedging of T12 and L1 vertebral bodies. There is mildly decreased disc height at L3-L4 and moderately decreased disc height at L4-L5. The distal spinal cord signal intensity is normal. The conus medullaris is at T12-L1. There is chronic mild left hydronephrosis. The following disc levels are specifically discussed: L1-L2: The disc does not extend beyond the endplate margin. There is mild bilateral facet joint osteoarthritis. There is no neural foraminal stenosis. There is no central canal stenosis. L2-L3: There is a left foraminal protrusion. There is mild right and moderate left facet joint osteoarthritis. There is mild left neural foraminal stenosis. There is no central canal stenosis. L3-L4: The disc is bulging and has an annular fissure. There is severe bilateral facet joint osteoarthritis. There is mild bilateral neural foraminal stenosis. There is mild central canal stenosis. L4-L5: The disc is bulging and has an annular fissure. There is severe bilateral facet joint osteoarthritis. There is moderate bilateral neural foraminal stenosis. There is mild central canal stenosis. L5-S1: The disc is mildly bulging. There is mild right and moderate left facet joint osteoarthritis. There is mild bilateral neural foraminal stenosis. There is mild central canal stenosis. IMPRESSION: 1. Moderate lumbar spondylosis. 2. Chronic mild left hydronephrosis. Reviewed, dictated and finalized at location E.
== END 2024-12-14 10:00 | disposition home or self-care (01) ==
LOC: MICIMG 10:00
PROVIDERS: PCP Family Medicine; Visit Provider Nurse Practitioner Family
DX: M47.816 Spondylosis without myelopathy or radiculopathy, lumbar region (principal); N13.30 Unspecified hydronephrosis
CPT/HCPCS: 72148

== ENCOUNTER 2025-01-11 00:42 | Emergency (ER) | payer MEDICARE, SELFPAY ==
--- NOTE | ~2025-01-11 | XR_ITS ---
EXAMINATION: XR hip RT min 2V, 01/11/2025 4:20 MAGNETIC RESONANCE IMAGING DIRECTOR HISTORY: recent bone biopsy; mets; pain COMPARISON: No comparisons available. Findings: No acute fracture or malalignment. Moderate degenerative changes Soft tissues unremarkable. Impression: No acute fracture or malalignment. Reviewed, dictated and finalized at location P. ETIC RESONANCE IMAGING DIRECTOR Impression: No acute fracture or malalignment.
--- OUTSIDE RECORDS SUMMARY | 2025-01-11 00:44 | XMS_ITS | Clinical Summary ---
Author Organization [facility] Address [address] [place] [address] Phone Care Team Providers Care Tallow Maker Name Role Phone Unavailable Primary Care Provider Unavailabl e Allergies Active Allergy Reactions Criticality Noted Date Comments Metoclopramide Hcl Fever Low 12/26/2024 Medications LORazepam (ATIVAN) 1 mg tablet Take 1 mg by mouth every 6 hours as needed for Anxiety. Active prochlorperazine maleate (COMPAZINE) 10 mg tablet Take 10 mg by mouth every 6 hours as needed for Nausea/Emes is. Active Encounters Date Type Department Care Team Description 01/08/2025 External Device Data ST[facility] ABSTRACTION Provider, Abstract 01/08/2025 External Device Data ST[facility] ABSTRACTION Provider, Abstract 01/08/2025 External Device Data ST[facility] ABSTRACTION Provider, Abstract 01/02/2025 8:09 AM IT MANAGER Anesthesia Event [facility] CT Scan S [facility] [address] [place] [address] Vince Tang DO 01/02/2025 5:49 AM IT MANAGER - 01/02/2025 9:59 AM IT MANAGER [facility] [address] [place] [address] Purvi Dillon MD 2, 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) Discharge Disposition: Home or Self Care from Last 3 Months Social History Tobacco Use Types Packs/Day Years Used Date Smoking Tobacco: Former Cigarettes Tobacco Cessation:Counseling Given: Not Answered Alcohol Use Standard Drinks/Week Comments Yes 0 (1 standard drink = 0.6 oz pur e alcohol) rarely Sex and Gender Information Value Date Recorded Sex Assigned at Not on file Legal Sex Male 6:50 PM IT MANAGER Gender Identity Not on file Sexual Orientation Not on file Last Filed Vital Signs Vital Sign Reading Time Taken Comments Blood Pressure 148/75 01/02/2025 9:30 AM IT MANAGER Pulse 65 01/02/2025 9:30 AM IT MANAGER Temperature 36.7 C (98 F) 01/02/2025 9:00 AM IT MANAGER Respiratory Rate 16 01/02/2025 9:00 AM IT MANAGER Oxygen Saturation 100% 01/02/2025 9:30 AM IT MANAGER Inhaled Oxygen Concentration - - Weight 66.5 kg (146 lb 11.2 oz) 01/02/2025 6:16 AM IT MANAGER Height 180.3 cm (5' 11) 01/02/2025 6:16 AM IT MANAGER Body Mass Index 20.46 01/02/2025 6:16 AM IT MANAGER Plan of Treatment Upcoming Encounters Date Type Department Care Team (Late st Contact Info) Description 01/16/2025 9:30 AM IT MANAGER Office Visit [facility] - [place] [address] [place] [address] Lucy Jasmine MD [address] [place] [address] Health Maintenance Due Date Last Done Comments Traditional Medicare (ACO) A nnual Wellness Visit 1977 FIT-DNA Q 3 years 11/04/2003 FIT/FOBT Q 1 year 11/04/2003 Flex Sig/CT Colonography Q 5 years 11/04/2003 PNEUMOCOCCAL VACCINE 50+ YEA RS (1 of 1 - PCV) 2008 ZOSTER VACCINE (1 of 2) 2008 INFLUENZA VACCINE (#1) 2024 2, 01/03/2021, 12/01/2019, Additional history exists DTAP/TDAP/TD VACCINES (2 - T d or Tdap) 12/03/2025 12/04/2015 COLORECTAL SCREENING 09/26/2029 09/27/2019, 11/29/19 10 Colorectal Cancer Screening 09/26/2029 RSV VACCINE (60+ or ) (1 - 1-dose 75+ series) 2033 Abdominal Aortic Aneurysm (A AA) Screening Completed 11/20/2024 Procedures Procedure Name Priority Date/Time Associated Diagnosis Comments CT GUIDED BIOPSY Routine 01/02/2025 9:04 AM IT MANAGER 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 DICTATION LOCATION: Location 1 - [facility] Narrative 01/02/2025 9:[address] GUIDANCE FOR TISSUE BIOPSY RIGHT ILIAC BONE CORE NEEDLE BIOPSY DATE: 01/02/2025 9:04 AM HISTORY: Lung mass. Indeterminate right iliac wing bone lesion. Biopsy has been requested. 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 ATTENDING RADIOLOGIST: Mohinder Graham MD DESCRIPTION OF PROCEDURE: Informed consent was obtained, including a detailed explanation of the risks and benefits of an iliac bone biopsy with CT guidance. The patient or person providing consent understood the risks and was given an opportunity to ask questions. The patient was placed on the CT table in the supine position and the skin overlying the right iliac bone was prepped and draped in sterile fashion. A timeout was performed. 1% Lidocaine was used for local skin anesthesia. Anesthesia was provided by anesthesiology services. The CT dose report for the procedure is total DLP: 706 mGy-cm. Under intermittent CT guidance, a 10-gauge bone access needle was introduced into the sclerotic lesion in the lateral right iliac wing. A 12-gauge core of the bone was obtained coaxially. This yielded an intact core. All needles were removed. Hemostasis was achieved with manual compression. Sterile dressing was applied. FINDINGS: Localizing CT images demonstrate the sclerotic lesion of the right iliac bone. There is a safe path for biopsy. Subsequent CT images of the access needle within the margin of the sclerotic lesion. Procedure Note Mohinder Graham III, MD - 01/02/2025 CT GUIDANCE FOR TISSUE BIOPSY RIGHT ILIAC BONE CORE NEEDLE BIOPSY DATE: 01/02/2025 9:04 AM HISTORY: Lung mass. Indeterminate right iliac wing bone lesion. Biopsy has been requested. 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 ATTENDING RADIOLOGIST: Mohinder Graham MD DESCRIPTION OF PROCEDURE: Informed consent was obtained, including a detailed explanation of the risks and benefits of an iliac bone biopsy with CT guidance. The patient or person providing consent understood the risks and was given an opportunity to ask questions. The patient was placed on the CT table in the supine position and the skin overlying the right iliac bone was prepped and draped in sterile fashion. A timeout was performed. 1% Lidocaine was used for local skin anesthesia. Anesthesia was provided by anesthesiology services. The CT dose report for the procedure is total DLP: 706 mGy-cm. Under intermittent CT guidance, a 10-gauge bone access needle was introduced into the sclerotic lesion in the lateral right iliac wing. A 12-gauge core of the bone was obtained coaxially. This yielded an intact core. All needles were removed. Hemostasis was achieved with manual compression. Sterile dressing was applied. FINDINGS: Localizing CT images demonstrate the sclerotic lesion of the right iliac bone. There is a safe path for biopsy. Subsequent CT images of the access needle within the margin of the sclerotic lesion. IMPRESSION: Successful core biopsy of abnormal sclerotic lesion of the right iliac bone. DICTATION LOCATION: Location 1 - 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 9:17 AM [facility] [employer] [facility] at 0917 IT MANAGER GROSS DESCRIPTION Received in one container labeled Jonathon Davila and right iliac is a 1.8 x 0.3 cm cylindrical core of firm white-restrepo bone and a 2 semitranslucent white-de la fuente tissue fragments measuring 0.2 and 0.3 cm. The tissue is entirely submitted as follows: A1-bone core following decalcification; A2-soft tissue fragments. Cassette(s) decalcified in decal ll at the bench. [facility] 9:17 AM [facility] [employer] [facility] MICROSCOPIC DESCRIPTION The slides are labeled [id number] and Jonathon Davila. Sections of the right iliac biopsy show a core of bone involved by metastatic carcinoma. The bone contains variably thickened trabeculae with irregular contours. Within the marrow space there are areas of fibrosis. Within the fibrosis there are scattered clusters of malignant epithelioid cells with significant nuclear pleomorphism. The nuclei are hyperchromatic and display irregular surface contours. Scattered cells with prominent nucleoli are noted. Scattered apoptotic cells are noted. The tumor cells have variable amount of eosinophilic to clear vacuolated cytoplasm. A panel of immunohistochemical stains was performed to further assess the tumor cell population. The tumor cells display strong positive staining for cytokeratin cocktail, CK7, and TTF-1. The tumor cells are negative for GATA3, NKX3.1, p40, CK20, CDX2, PAX8, and S100. The morphology and immunophenotype are most compatible with a metastatic adenocarcinoma of pulmonary origin. 9:17 AM IT MANAGER [facility] CLINICAL INFORMATION CC: Purvi Dillon [phone] No Dx found. 9:17 AM [facility] COMMENT Special stain, immunohistochemical, and/or in situ hybridization results are interpreted with controls that demonstrate appropriate staining reactions. Note on use of immunohistochemistry reagents and in situ hybridization probes: These tests were developed and their performance characteristics determined by [facility]. It has not been cleared or approved by the U.S. Food and Drug Administration. The FDA has determined that such clearance or approval is not necessary. The test is used for clinical purposes. It should not be regarded as investigational or for research. This laboratory is certified to perform high complexity testing. Frozen section/operating room consultation, gross examination and dissection, and case sign out may have been performed in part or completely in the following laboratories: [facility], CLIA #[id number] [address] [place] [address] [facility], [place] #[id number] [address] [place] [address] [facility]/[place], [place] #[id number] [address] [place] [address] This report was created with the PerformLine voice-activated dictation system. Inherent to this system is the possibility of syntax, grammar, punctuation and other errors that could impact the interpretation of the report. If there are interpretative questions about aspects of this report, please contact the performing pathologist. 9:17 AM [facility] Tissue (Other, specify) Collection / Unknown 01/02/2025 8:55 AM IT MANAGER 01/02/2025 11:52 AM IT MANAGER Comment:CC: Purvi Dillon [phone] Mohinder Graham III, MD PATHOLOGY/CYTOLOGY O RDERABLES Final Result [facility] CLIA# [id number] [address] [facility] [place] [address] * (ABNORMAL) CBC WITH DIFFERENTIAL (01/02/2025 6:16 AM IT MANAGER) [facility] WBC 10.7(H) 4.0 - 9.8 K/uL 01/02/2025 6:32 AM IT MANAGER [facility] RBC 4.46(L) 4.50 - 5.40 M/uL 01/02/2025 6:32 AM IT MANAGER [facility] HEMOGLOBIN 12.7(L) 13.6 - 16.5 g/dL 01/02/2025 6:32 AM IT MANAGER [facility] HEMATOCRIT 38.5(L) 40.0 - 48.0 % 01/02/2025 6:32 AM IT MANAGER [facility] MCV 86.3 82.0 - 99.0 fL 01/02/2025 6:32 AM IT MANAGER [facility] MCH 28.5 27.2 - 32.6 pg 01/02/2025 6:32 AM IT MANAGER [facility] MCHC 33.0 31.5 - 35.5 g/dL 01/02/2025 6:32 AM IT MANAGER [facility] RDW 12.8 11.5 - 14.5 % 01/02/2025 6:32 AM IT MANAGER [facility] RDW-STDEV 40.3 37.1 - 48.7 fL 01/02/2025 6:32 AM IT MANAGER [facility] PLATELETS 300 140 - 350 K/uL 01/02/2025 6:32 AM IT MANAGER [facility] MPV 8.8(L) 9.3 - 12.4 fL 01/02/2025 6:32 AM IT MANAGER [facility] - . [facility] NEUTROPHILS 74 % 01/02/2025 6:32 AM IT MANAGER [facility] - . RD LYMPHOCYTES 13 % 01/02/2025 6:32 AM IT MANAGER [facility] - . RD MONOCYTES 12 % 01/02/2025 6:32 AM IT MANAGER [employer] [facility] - . RD EOSINOPHILS 1 % 01/02/2025 6:32 AM IT MANAGER [facility] - . RD BASOPHILS 1 % 01/02/2025 6:32 AM IT MANAGER [facility] IMMATURE GRANULOCYTES 1 % 01/02/2025 6:32 AM [facility] Comment:IG (Immature Granulo cyte) count includes Metamyelocytes, Myelocytes, and Promyelocytes NEUTROPHIL ABSOLUTE 7.87(H) 1.90 - 7.00 K/uL 01/02/2025 6:32 AM [facility] [employer] [facility]. [facility] LYMPHOCYTE ABSOLUTE 1.34 0.70 - 4.50 K/uL 01/02/2025 6:32 AM [facility]. [facility] MONOCYTE ABSOLUTE 1.23 0.10 - 1.30 K/uL 01/02/2025 6:32 AM [facility] [employer] [facility]. [facility] EOSINOPHIL ABSOLUTE 0.13 0.00 - 0.70 K/uL 01/02/2025 6:32 AM [facility] [employer] [facility]. [facility] BASOPHILS ABSOLUTE 0.07 0.00 - 0.20 K/uL 01/02/2025 6:32 AM [facility] [employer] [facility]. [facility] IMMATURE GRANULOCYTES ABSOLUTE 0.06(H) 0.00 - 0.03 K/uL 01/02/2025 6:32 AM [facility] [employer] [facility] Blood Venipuncture / Unknown 01/02/2025 6:16 AM IT MANAGER 01/02/2025 6:22 AM IT MANAGER us Cy Mary MYLES HEMATOLOGY ORDERABLES Final Resu lt [facility] [employer] [facility]# [id number] [address] [place] [address] [place] [address] * (ABNORMAL) BASIC METABOLIC PANEL (01/02/2025 6:16 AM IT MANAGER) SODIUM 138 136 - 145 mmol/L 01/02/2025 6:55 AM [facility] [employer] [facility] POTASSIUM 4.1 3.5 - 5.0 mmol/L 01/02/2025 6:55 AM [facility] [employer] [facility] CHLORIDE 98 98 - 107 mmol/L 01/02/2025 6:55 AM [facility] [employer] [facility]. [facility] CO2 28 22 - 29 mmol/L 01/02/2025 6:55 AM [facility] [employer] [facility] CALCIUM 9.6 8.6 - 10.2 mg/dL 01/02/2025 6:55 AM [facility] [employer] [facility] BUN 14 8 - 23 mg/dL 01/02/2025 6:55 AM [facility] CREATININE 0.75 0.67 - 1.17 mg/dL 01/02/2025 6:55 AM [facility] [employer] [facility] GLUCOSE 112(H) 74 - 99 mg/dL 01/02/2025 6:55 AM [facility] [employer] [facility] GFR >60 >=60 mL/min/1.7 3 sq meter 01/02/2025 6:55 AM [facility] [employer] [facility] Comment:eGFR calculated with 2020 CKD-EPI equation. Vegetarian diet, extremely high or low muscle mass, and may affect results. Cystatin C with Glomerular Filtration Rate is a suitable alternative for these patients. ANION GAP 12 8 - 16 mmol/L 01/02/2025 6:55 AM [facility] [employer] [facility] Blood Venipuncture / Unknown 01/02/2025 6:16 AM IT MANAGER 01/02/2025 6:22 AM IT MANAGER Cythomas Hernandez MD CHEMISTRY ORDERABLES Final Resul t [facility] [employer] [facility]# [id number] [address] [facility] [place] [address] from Last 3 Months Insurance MEDICARE PART A AND B [facility] SUPP MEDICARE PART A AND B [facility] SUPP
--- OUTSIDE RECORDS SUMMARY | 2025-01-11 00:44 | XMS_ITS | Clinical Summary ---
Author Organization [facility] Address [address] [place] [address] Care Team Providers Care Fur Repairer Name Role Phone Lorraine Ortiz MD Primary Care Provider [phone] Encounters Date Type Department Care Team Description 11/20/2024 4:14 PM CDT - 11/20/2024 11:59 PM CDT Hospital Encounter [facility] [address] [place] [address] Lorraine Ortiz MD Discharge Disposition: Home or [...] Annual Medicare Wellness Visit 11/04/2023 COVID-19 Vaccine ( season) 2024 Influenza Adult (#1) 2024 12/13/2023, 11/10/2022, 12/07/2021, Additional history exists DTaP, Tdap and Td Vaccines (2 - Td or Tdap) 12/03/2025 12/04/2015 RSV Immunization or 60+ Years (1 - 1-dose 75+ series) 2033 Zoster Vaccines Completed 08/11/2022, 06/09/2022 Pneumococcal Vaccine: 50+ Years Completed 12/13/2023, 10/26/2011 Hepatitis A Vaccines Aged Out No long er eligible based on patient's age to complete this topic Meningococcal B Vaccine Aged Out No l onger eligible based on patient's age to complete this topic Meningococcal Vaccine Aged Out No dayan liya eligible based on patient's age to complete this topic RSV Immunizations Under 20 Months Aged Out No longer eligible based on patient's age to complete this topic Procedures Procedure Name Priority Date/Time Associated Diagnosis Comments CT ABD+PEL WO CON Routine 11/20/2024 4:3 2 PM CDT Other specified dorsopathies, lumbosacral region CT LUMB SPINE WO CON Routine 11/20/2024 4:32 PM CDT Other specified dorsopathies, lumbosacral region [...] 8:33 PM Narrative 11/20/2024 8:37 PM CDT [address] [address] PROCEDURE: CT ABD+PEL WO CON HISTORY: Right [...] Procedure Note Sarah Deshpande MD - 11/20/[address] [address] PROCEDURE: CT ABD+PEL WO CON HISTORY: Right [...] Ortiz MD CT Final Resu lt * CT LUMB SPINE WO CON (11/20/2024 4:32 PM CDT) Anatomical Region Laterality Modality Spine Computed Tomogra phy 11/30/2024 3:32 PM CDT Impressions 11/30/2024 3:44 PM CDT IMPRESSION: Multilevel lumbar spondylosis as detailed within the body of the report. Findings are most notable at L4-L5 and L5-S1. Referred By: LORRAINE ORTIZ Interpreted By: Octavio Rodney MD, 11/30/2024 3:32 PM Narrative 11/30/2024 3:44 PM [address]T [address] [address] EXAMINATION: CT LUMB SPINE WO CON HISTORY: Right hip pain anteriorly wrapping posterior to low buttock. COMPARISON: Same day CT abdomen and pelvis 11/20/2024. TECHNIQUE: Axial, coronal and sagittal CT images of the lumbar spine were obtained without contrast. A radiation dose lowering technique was used for this procedure, which may include, but is not limited to, dose reduction technique, automated exposure control, the use of iterative reconstruction, ALARA (As Low As Reasonably Achievable) techniques, and Image Gently techniques. FINDINGS: Trace grade 1 anterolisthesis of L4 on L5. Vertebral body heights are preserved. Mild degenerative disc space narrowing and marginal osteophytes. Degenerative endplate irregularity is seen involving the anterior superior endplate of L5. Facet alignment is preserved bilaterally. Multilevel degenerative facet arthropathy. No fracture or destructive bone process is identified. No acute spinal canal compromise is seen. L1-L2: Facet arthropathy. Small disc bulge. No significant spinal canal or neural foraminal stenosis. L2-L3: Facet arthropathy and ligamentous thickening. Small disc bulge. Mild spinal canal and bilateral neural foraminal stenosis. L3-L4: Facet arthropathy and ligamentous thickening. Diffuse disc bulge. Mild spinal canal stenosis. Nlub-tm-[id number] bilateral neural foraminal stenosis. L4-L5: Facet arthropathy and ligamentous thickening. Diffuse disc bulge. Trace grade 1 anterolisthesis. Mild to moderate spinal canal stenosis. Severe bilateral neural foraminal stenosis. L5-S1: Facet arthropathy and ligamentous thickening. Diffuse disc bulge. No significant spinal canal stenosis. Moderate to severe bilateral neural foraminal stenosis. Procedure Note Octavio Rodney MD - 11/30/[address] [address] EXAMINATION: CT LUMB SPINE WO CON HISTORY: Right hip pain anteriorly wrapping posterior to low buttock. COMPARISON: Same day CT abdomen and pelvis 11/20/2024. TECHNIQUE: Axial, coronal and sagittal CT images of the lumbar spine wereobtained without contrast. A radiation dose lowering technique was usedfor this procedure, which may include, but is not limited to, dosereduction technique, automated exposure control, the use of iterativereconstruction, ALARA (As Low As Reasonably Achievable) techniques, andImage Gently techniques. FINDINGS: Trace grade 1 anterolisthesis of L4 on L5. Vertebral body heights arepreserved. Mild degenerative disc space narrowing and marginalosteophytes. Degenerative endplate irregularity is seen involving theanterior superior endplate of L5. Facet alignment is preservedbilaterally. Multilevel degenerative facet arthropathy. No fracture ordestructive bone process is identified. No acute spinal canal compromiseis seen. L1-L2: Facet arthropathy. Small disc bulge. No significant spinal canal orneural foraminal stenosis. L2-L3: Facet arthropathy and ligamentous thickening. Small disc bulge.Mild spinal canal and bilateral neural foraminal stenosis. L3-L4: Facet arthropathy and ligamentous thickening. Diffuse disc bulge.Mild spinal canal stenosis. Sgze-kl-xiykvbxn bilateral neural foraminalstenosis. L4-L5: Facet arthropathy and ligamentous thickening. Diffuse disc bulge.Trace grade 1 anterolisthesis. Mild to moderate spinal canal stenosis.Severe bilateral neural foraminal stenosis. L5-S1: Facet arthropathy and ligamentous thickening. Diffuse disc bulge.No significant spinal canal stenosis. Moderate to severe bilateral neuralforaminal stenosis. IMPRESSION: Multilevel lumbar spondylosis as detailed within the body of the report.Findings are most notable at L4-L5 and L5-S1. Referred By: LORRAINE ORTIZ Interpreted By: Octavio Rodney MD, 11/30/2024 3:32 PM us Lorraine Ortiz MD CT Final Resu lt * Colonoscopy (11/28/2009 12:00 AM CDT) 11/28/2009 11/28/2009 Narrative TOUCHWORKS TO EPIC CONVERSION - 11/28/2009 12:00 AM CDT Documented hx of procedure Procedure Note Rose Myles MD - 05/18/2018 Documented hx of procedure us Generic Conversion Md MYLES GI PROCEDURE ORDERABLES Final Result Performing Organization Address City/State/[facility] Co de Phone Number TOUCHWORKS TO EPIC CONVERSION from Last 3 Months or Most Recently Relevant to Health Maintenance Insurance MEDICARE [facility] Care Teams Fur Repairer Relationship Specialty Start Date End Date Lorraine Ortiz MD [address] [place] [address] PCP - General FAMILY PRACTICE 11/15/24
--- OUTSIDE RECORDS SUMMARY | 2025-01-11 00:44 | XMS_ITS | Clinical Summary ---
Author Organization [facility] Address [address] [place] [address] Care Team Providers Care Csr Name Role Phone Vahe Espinoza MD Primary Care Provider [phone] Source Comments [facility],non-owned Affiliates and Associated Physician Practices is amultiple site organization consisting of ambulatory clinics and hospital sitesin [place], [place], [place] and [place]. This disclosure is being madepursuant to the Care Everywhere program and may not contain all information available regarding this patient. Last updated 17.[facility] Allergies No known active allergies Medications * [...] Comments Blood Pressure 148/89 03/12/2022 9:03 AM CERAMIST Pulse 57 03/12/2022 9:03 AM CERAMIST Temperature 36.2 C (97.2 F) 03/12/2022 9:03 AM CERAMIST Respiratory Rate - - Oxygen Saturation - - Inhaled Oxygen Concentration - - Weight 78.9 kg (174 lb) 03/12/2022 9:03 AM CERAMIST Height 180.3 cm (5' 11) 03/12/2022 9:03 AM CERAMIST Body Mass Index 24.27 03/12/2022 9:03 AM CERAMIST Plan of Treatment Health Maintenance Due Date [...] patient's age to complete this topic Insurance [facility] Address: [address] [address] Care Teams Csr Relationship Specialty Start Date End Date Vahe Espinoza MD [address] [place] [address] PCP - General 01/25/22
[2025-01-11 00:46] VITALS: BP 139/66; PULSE 78; RESP 18; TEMP 36.4; O2SAT 98
--- NOTE | 2025-01-11 02:47 | ED.GENADULT ---
HPI - General Adult General Chief complaint: Extremity Problem,Nontraumatic Stated complaint: hip pain Time Seen by Provider: 01/11/25 02:28 Source: patient and family ( hesham) Mode of arrival: ambulatory Limitations: no limitations History of Present Illness HPI narrative: Patient presents with report of right hip pain. No fall/injury/trauma. Recently diagnosed with lung cancer with mets to the hip bone. Has an appointmetn to establish with Dr Oneil on Tuesday. Had a bone biopsy last Tuesday (> 1 week ago). Had seen his chiropractor for sciatica pain in August. Denies back back or midline pain. He does have pain in his posterior thigh. Had been prescribed Tylenol with codeine (Tylenol #3) December 21; states not much help. Pain 10/[address] Espinoza. Reports that he had seen the PA at one point for the hip pain but no Xray performed. Instead did PT which made pain worse. Related Data Allergies Allergy/AdvReac Type Severity Reaction Status Date / Time metoclopramide AdvReac Severe seizures Verified 01/11/25 15:18 [facility] Past Medical History Medical History Metastasis to bone Metastatic lung cancer (metastasis from lung to other site) Pancreatic insufficiency IFG (impaired fasting glucose) NOE (obstructive sleep apnea) PTSD (post-traumatic stress disorder) Pure hyperglyceridemia Surgical History Surgical History H/O colonoscopy Family History Family History Father Patient's father is Other Family history of cardiovascular disease Social History Social History Social History: Smoking packs per day: 2 Smoking cigarettes per day: 40.0 Years smoked: 20 Smoking pack-years: 40.00 Smoking status: Former smoker Tobacco type: cigarettes Second hand tobacco smoke exposure: No Smoking end date: 02/28/90 Alcohol intake: never Substance use: never Substance use type: does not use Do You Feel Safe in your Home?: Yes Lack of Transportation: No Lack of Food: Never True Current Housing: I Have Housing Concerned About Future Housing: No Difficulty Paying Gas/Electric Bills: No Difficulty Paying for Meds: No Currently Unemployed: No Education: Trade/Vocational Certificate Difficulty w/ Childcare or Family Care: No Living arrangements: with family Occupation/Education: retired 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 HEAD: Normocephalic, atraumatic. EYES: Non injected, non icteric ENT: Nares clear, no rhinorrhea or epistaxis. Gross auditory acuity intact. NECK: Supple. No meningismus. CHEST: Speaking in full sentences. No respiratory distress. HEART: Regular rate and rhythm. . ABDOMEN: Soft, nondistended. No rigidity or guarding. Not peritoneal EXTREMITIES: Normal range of motion. No lower extremity edema. Pelvis: Stable to compression. No TTP of right hip. SKIN: Warm, dry, no rash. NEURO: No focal deficits. Alert and oriented. Answering questions. Following commands. Normal speech without aphasia or dysarthria. PSYCH: Normal mood and affect. Course Vital Signs Vital signs: Vital Signs Temperature 97.6 F 01/11/25 00:46 Pulse Rate 78 01/11/25 00:46 Respiratory Rate 18 01/11/25 00:46 Blood Pressure 139/66 01/11/25 00:46 Pulse Oximetry 98 01/11/25 00:46 Oxygen Delivery Room Air 01/11/25 00:46 Temperature 97.6 F 01/11/25 00:46 Pulse Rate 100 01/11/25 06:04 Respiratory Rate 18 01/11/25 06:04 Blood Pressure 120/64 01/11/25 06:04 Pulse Oximetry 99 01/11/25 06:04 Oxygen Delivery Room Air 01/11/25 00:46 Medical Decision Making MDM Narrative Medical decision making narrative: Patient presents with right hip pain. New diagnosis of lung cancer with mets to the bone, known in this area. Also history sciatica and he reports some pain radiating down posterior right leg but without midline back pain. He did have a bone biopsy of this hip >1 week ago but no other trauma/injury/falls. In the emergency department they are afebrile with vital signs within normal limits. Per review of the EMR, he has Tylenol with codeine (Tylenol #3) prescribed. He continues to have pain after Oxy; 5mg IM Valium ordered. He takes ativan at home. He does desaturate briefly after that but resolves when awake. Patient's pain is better and he is able to ambulate with a cane with a steady gait. He would like to go. Stable for discharge. Discharged with Rx for oxy. Advised keeping follow up heme/onc apopintment and following up with PCP. Medical Records Medical records reviewed: Yes I reviewed the external patient's medical records. Medical records narrative: Hip CT 11/24/24 IMPRESSION: 1. New sclerosis in right iliac wing, consistent with metastatic disease. 2. Moderate right hip osteoarthritis. Scanned copy of [facility] CT guided Biopsy Right Iliac Bone COre Needle Biopsy: Localizing CT images demonstrate the sclerotic lesion of the right iliac bone. There is a safe past for biopsy. Subsequent CT images of the access needle within the margin of the sclerotic lesion. Vital Signs Vital Signs: Vital Signs Temperature 97.6 F 01/11/25 00:46 Pulse Rate 78 01/11/25 00:46 Respiratory Rate 18 01/11/25 00:46 Blood Pressure 139/66 01/11/25 00:46 Pulse Oximetry 98 01/11/25 00:46 Oxygen Delivery Room Air 01/11/25 00:46 Temperature 97.6 F 01/11/25 00:46 Pulse Rate 100 01/11/25 06:04 Respiratory Rate 18 01/11/25 06:04 Blood Pressure 120/64 01/11/25 06:04 Pulse Oximetry 99 01/11/25 06:04 Oxygen Delivery Room Air 01/11/25 00:46 Imaging Data Attestation: I personally reviewed and interpreted this imaging study as follows: My impression: Negative for acute process on my independent interpretation Discharge Plan Discharge Clinical Impression: Hip pain, right Patient Disposition: Home Condition: Stable Instructions: Antibiotic Form, Narcotic Safety (ED), Hip Pain (ED), Bone Metastasis (ED) Additional Instructions: Keep your upcoming appointment with the oncologist Dr Oneil. For your pain, I am prescribing a short course of a stronger opiate/narcotic medication. Do NOT take this with the Tylenol #3 you were prescribed given they both contain opiates. Return to the emergency department for any new/worsening symptoms. Patient Language: Polish Prescriptions: New oxycodone 5 mg tablet 5 mg PO Q8H PRN (Reason: pain) Qty: 10 0RF No Action pantoprazole 40 mg tablet,delayed release (DR/EC) 40 mg PO QAM Qty: 30 2RF mirtazapine 15 mg tablet 15 mg PO QHS Qty: 30 5RF lorazepam 1 mg tablet 1 mg PO BID PRN (Reason: ptsd) Qty: 60 0RF prochlorperazine maleate 10 mg tablet 10 mg PO Q8H PRN (Reason: nausea and vomiting) Qty: 30 0RF Follow-up/Referrals: Moises Oneil MD [Physician, Hematology] Vahe Espinoza MD [Primary Care Provider, Family Practice] Stand Alone Forms: Work/School Release IP Time of Disposition: 05:56
--- OUTSIDE RECORDS SUMMARY | 2025-01-11 03:00 | XMS_ITS | Clinical Summary ---
Author Organization [facility] Address [address] [place] [address] Phone Care Team Providers Care Open Developer Operator Name Role Phone Unavailable Primary Care Provider [...] STL ABSTRACTION Provider, Abstract 01/02/2025 8:09 AM NUT STEAMER Anesthesia Event [facility] CT Scan S [facility] [address] [place] [address] Vince Tang DO 01/02/2025 5:49 AM NUT STEAMER - 01/02/2025 9:59 AM NUT STEAMER [facility] [address] [place] [address] Purvi Dillon MD 2, [facility] Vince Tang DO Secondary malignant [...] on file Legal Sex Male 6:50 PM NUT STEAMER Gender Identity Not on file Sexual Orientation Not on file Last Filed Vital Signs Vital Sign Reading Time Taken Comments Blood Pressure 148/75 01/02/2025 9:30 AM NUT STEAMER Pulse 65 01/02/2025 9:30 AM NUT STEAMER Temperature 36.7 C (98 F) 01/02/2025 9:00 AM NUT STEAMER Respiratory Rate 16 01/02/2025 9:00 AM NUT STEAMER Oxygen Saturation 100% 01/02/2025 9:30 AM NUT STEAMER Inhaled Oxygen Concentration - - Weight 66.5 kg (146 lb 11.2 oz) 01/02/2025 6:16 AM NUT STEAMER Height 180.3 cm (5' 11) 01/02/2025 6:16 AM NUT STEAMER Body Mass Index 20.46 01/02/2025 6:16 AM NUT STEAMER Plan of Treatment Upcoming Encounters Date Type Department Care Team (Late st Contact Info) Description 01/16/2025 9:30 AM NUT STEAMER Office Visit [facility] Oncology and Hematology - [place] [address] [place] [address] Lucy Jasmine MD [address] [place] [address] Health Maintenance Due Date Last [...] CT GUIDED BIOPSY Routine 01/02/2025 9:04 AM NUT STEAMER 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) PATHOLOGY Pathology 01/02/2025 8:55 AM NUT STEAMER BASIC METABOLIC PANEL Stat 01/02/2025 6:16 AM NUT STEAMER CBC WITH DIFFERENTIAL Pre-Procedure 01/02/2025 6:16 AM NUT STEAMER from Last 3 Months Results * CT GUIDED BIOPSY (01/02/2025 9:04 AM NUT STEAMER) Anatomical Region Laterality Modality Computed Tomogra phy, Other 01/02/2025 8:42 AM NUT STEAMER Impressions 01/02/2025 9:31 AM NUT STEAMER IMPRESSION: Successful core biopsy of abnormal sclerotic lesion of the right iliac bone. DICTATION LOCATION: Location 1 - [facility] Narrative 01/02/2025 9:[address] GUIDANCE FOR TISSUE BIOPSY RIGHT ILIAC [...] iliac bone. DICTATION LOCATION: Location 1 - [facility] Purvi Dillon MD CT ORDERABLES Final Resul t * PATHOLOGY (01/02/2025 8:55 AM [facility]) CASE REPORT Surgical Pathology Report Case: [id number] Authorizing Provider: Mohinder Graham III, Collected: 01/02/2025 08:55 AM Ordering Location: [facility] Received: 01/02/2025 11:[address] Pathologist: Fred Santoyo DO Specimen: Other, specify, Pelvis, R iliac 9:17 AM [facility] [employer] [facility] FINAL DIAGNOSIS Bone, right iliac, biopsy: - Metastatic carcinoma, 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 9:17 AM [facility] [employer] [facility] at 0917 NUT STEAMER GROSS DESCRIPTION Received in one container labeled Jonathon Davila and right iliac is a 1.8 x 0.3 cm cylindrical core of firm white-restrepo bone and a 2 semitranslucent white-de la fuente tissue fragments measuring 0.2 and 0.3 cm. The tissue is entirely submitted as follows: A1-bone core following decalcification; A2-soft tissue fragments. Cassette(s) decalcified in decal ll at the bench. [facility] 9:17 AM [facility] [employer] [facility] MICROSCOPIC DESCRIPTION The slides are labeled [id number] and Jonathon Davila. Sections of the right [...] metastatic adenocarcinoma of pulmonary origin. 9:17 AM NUT STEAMER [facility] CLINICAL INFORMATION CC: Purvi Dillon [phone] No Dx found. 9:17 AM [facility] COMMENT Special stain, immunohistochemical, and/or in situ hybridization results are interpreted with controls that demonstrate appropriate staining reactions. Note on use of immunohistochemistry reagents and in situ hybridization probes: These tests were developed and their performance characteristics determined by [facility] Department of Laboratory Medicine. It has not [...] part or completely in the following laboratories: [facility], CLIA #[id number] [address] [place] [address] [facility] [place], [place] #[id number] [address] [place] [address] [facility]/[place], [place] #[id number] [address] [place] [address] This report was created with the [employer] voice-activated dictation system. Inherent to this system is the possibility of syntax, grammar, punctuation and other errors that could impact the interpretation of the report. If there are interpretative questions about aspects of this report, please contact the performing pathologist. 9:17 AM [facility] Tissue (Other, specify) Collection / Unknown 01/02/2025 8:55 AM NUT STEAMER 01/02/2025 11:52 AM NUT STEAMER Comment:CC: Purvi Dillon [phone] Mohinder Graham III, MD PATHOLOGY/CYTOLOGY O RDERABLES Final Result [facility] CLIA# [id number] [address] [place] [address] * (ABNORMAL) CBC WITH DIFFERENTIAL (01/02/2025 6:16 AM NUT STEAMER) [facility] WBC 10.7(H) 4.0 - 9.8 K/uL 01/02/2025 6:32 AM NUT STEAMER [facility] RBC 4.46(L) 4.50 - 5.40 M/uL 01/02/2025 6:32 AM NUT STEAMER [facility] HEMOGLOBIN 12.7(L) 13.6 - 16.5 g/dL 01/02/2025 6:32 AM NUT STEAMER [facility] HEMATOCRIT 38.5(L) 40.0 - 48.0 % 01/02/2025 6:32 AM NUT STEAMER [facility] MCV 86.3 82.0 - 99.0 fL 01/02/2025 6:32 AM NUT STEAMER [facility] MCH 28.5 27.2 - 32.6 pg 01/02/2025 6:32 AM NUT STEAMER [facility] MCHC 33.0 31.5 - 35.5 g/dL 01/02/2025 6:32 AM NUT STEAMER [facility] RDW 12.8 11.5 - 14.5 % 01/02/2025 6:32 AM NUT STEAMER [facility] RDW-STDEV 40.3 37.1 - 48.7 fL 01/02/2025 6:32 AM NUT STEAMER [facility] PLATELETS 300 140 - 350 K/uL 01/02/2025 6:32 AM NUT STEAMER [employer] MPV 8.8(L) 9.3 - 12.4 fL 01/02/2025 6:32 AM NUT STEAMER [employer] [facility] - . [facility] NEUTROPHILS 74 % 01/02/2025 6:32 AM NUT STEAMER [employer] - . RD LYMPHOCYTES 13 % 01/02/2025 6:32 AM NUT STEAMER [employer] - . RD MONOCYTES 12 % 01/02/2025 6:32 AM NUT STEAMER [employer] [facility] - . RD EOSINOPHILS 1 % 01/02/2025 6:32 AM NUT STEAMER [facility] - . RD BASOPHILS 1 % 01/02/2025 6:32 AM NUT STEAMER [facility] IMMATURE GRANULOCYTES 1 % 01/02/2025 6:32 AM [facility] Comment:IG (Immature Granulo cyte) count includes Metamyelocytes, Myelocytes, and Promyelocytes NEUTROPHIL ABSOLUTE 7.87(H) 1.90 - 7.00 K/uL 01/02/2025 6:32 AM [facility] [employer] [facility]. [facility] LYMPHOCYTE ABSOLUTE 1.34 0.70 - 4.50 K/uL 01/02/2025 6:32 AM [facility]. [facility] MONOCYTE ABSOLUTE 1.23 0.10 - 1.30 K/uL 01/02/2025 6:32 AM [facility] [employer] [facility]. [facility] EOSINOPHIL ABSOLUTE 0.13 0.00 - 0.70 K/uL 01/02/2025 6:32 AM [facility] [employer] [facility]. [facility] BASOPHILS ABSOLUTE 0.07 0.00 - 0.20 K/uL 01/02/2025 6:32 AM [facility] [employer] [facility]. [facility] IMMATURE GRANULOCYTES ABSOLUTE 0.06(H) 0.00 - 0.03 K/uL 01/02/2025 6:32 AM [facility] [employer] [facility] Blood Venipuncture / Unknown 01/02/2025 6:16 AM NUT STEAMER 01/02/2025 6:22 AM NUT STEAMER us Cy Mary MYLES HEMATOLOGY ORDERABLES Final Resu lt [facility] [employer] [facility]# [id number] [address] [place] [address] [place] [address] * (ABNORMAL) BASIC METABOLIC PANEL (01/02/2025 6:16 AM NUT STEAMER) SODIUM 138 136 - 145 mmol/L 01/02/2025 6:55 AM [facility] [employer] [facility] POTASSIUM 4.1 3.5 - 5.0 mmol/L 01/02/2025 6:55 AM [facility] [employer] [facility] CHLORIDE 98 98 - 107 mmol/L 01/02/2025 6:55 AM [facility] [employer] [facility]. [facility] CO2 28 22 - 29 mmol/L 01/02/2025 6:55 AM [facility] [employer] [facility] CALCIUM 9.6 8.6 - 10.2 mg/dL 01/02/2025 6:55 AM [facility] [employer] [facility] BUN 14 8 - 23 mg/dL 01/02/2025 6:55 AM [facility] CREATININE 0.75 0.67 - 1.17 mg/dL 01/02/2025 6:55 AM [facility] [employer] [facility] GLUCOSE 112(H) 74 - 99 mg/dL 01/02/2025 6:55 AM [facility] [employer] [facility] GFR >60 >=60 mL/min/1.7 3 sq meter 01/02/2025 6:55 AM [facility] [employer] [facility] Comment:eGFR calculated with 2020 CKD-EPI equation. Vegetarian diet, extremely high or low muscle mass, and may affect results. Cystatin C with Glomerular Filtration Rate is a suitable alternative for these patients. ANION GAP 12 8 - 16 mmol/L 01/02/2025 6:55 AM [facility] [employer] [facility] Blood Venipuncture / Unknown 01/02/2025 6:16 AM NUT STEAMER 01/02/2025 6:22 AM NUT STEAMER Cythomas Hernandez MD CHEMISTRY ORDERABLES Final Resul t [facility] [employer] [facility]# [id number] [address] [facility] [place] [address] from Last 3 Months Insurance MEDICARE PART A AND B [facility] SUPP MEDICARE PART A AND B [facility] SUPP
--- OUTSIDE RECORDS SUMMARY | 2025-01-11 03:00 | XMS_ITS | Clinical Summary ---
Author Organization [facility] Address [address] [place] [address] Care Team Providers Care Metal Tank Builder Name Role Phone Lorraine Ortiz MD Primary Care Provider [phone] Encounters Date Type Department Care Team Description 11/20/2024 4:14 PM CDT - 11/20/2024 11:59 PM CDT Hospital Encounter [facility] [address] [place] [address] Lorraine Ortiz MD Discharge Disposition: Home or [...] 8:33 PM Narrative 11/20/2024 8:37 PM CDT [address] [address] PROCEDURE: CT ABD+PEL WO CON HISTORY: Right [...] Procedure Note Sarah Deshpande MD - 11/20/[address] [address] PROCEDURE: CT ABD+PEL WO CON HISTORY: Right [...] 3:32 PM Narrative 11/30/2024 3:44 PM CDT [address] [address] EXAMINATION: CT LUMB SPINE WO CON HISTORY: [...] Diffuse disc bulge. Mild spinal canal stenosis. Pizk-ow-omeagcpl bilateral neural foraminal stenosis. L4-L5: Facet arthropathy and ligamentous thickening. Diffuse disc bulge. Trace grade 1 anterolisthesis. Mild to moderate spinal canal stenosis. Severe bilateral neural foraminal stenosis. L5-S1: Facet arthropathy and ligamentous thickening. Diffuse disc bulge. No significant spinal canal stenosis. Moderate to severe bilateral neural foraminal stenosis. Procedure Note Octavio Rodney MD - 11/30/[address] [address] EXAMINATION: CT LUMB SPINE WO CON HISTORY: [...] thickening. Diffuse disc bulge.Mild spinal canal stenosis. [id number] bilateral neural foraminalstenosis. L4-L5: Facet arthropathy and [...] PROCEDURE ORDERABLES Final Result Performing Organization Address City/State/[facility] Co de Phone Number TOUCHWORKS TO EPIC CONVERSION from Last 3 Months or Most Recently Relevant to Health Maintenance Insurance MEDICARE [facility] Care Teams Metal Tank Builder Relationship Specialty Start Date End Date Lorraine Ortiz MD [address] [place] [address] PCP - General FAMILY PRACTICE 11/15/24
--- OUTSIDE RECORDS SUMMARY | 2025-01-11 03:00 | XMS_ITS | Clinical Summary ---
Author Organization [facility] Address [address] [place] [address] Care Team Providers Care Soil Fertility Extension Specialist Name Role Phone Vahe Espinoza MD Primary Care Provider [phone] Source Comments [facility],non-owned Affiliates and Associated Physician Practices is amultiple site organization consisting of ambulatory clinics and hospital sitesin [place], [place], [place] and [place]. This disclosure is being madepursuant to the Care Everywhere program and may not contain all information available regarding this patient. Last updated 17.[facility] Allergies No known active allergies Medications * [...] Comments Blood Pressure 148/89 03/12/2022 9:03 AM BOILING HOUSE OILER Pulse 57 03/12/2022 9:03 AM BOILING HOUSE OILER Temperature 36.2 C (97.2 F) 03/12/2022 9:03 AM BOILING HOUSE OILER Respiratory Rate - - Oxygen Saturation - - Inhaled Oxygen Concentration - - Weight 78.9 kg (174 lb) 03/12/2022 9:03 AM BOILING HOUSE OILER Height 180.3 cm (5' 11) 03/12/2022 9:03 AM BOILING HOUSE OILER Body Mass Index 24.27 03/12/2022 9:03 AM BOILING HOUSE OILER Plan of Treatment Health Maintenance Due Date [...] patient's age to complete this topic Insurance [facility] Care Teams Soil Fertility Extension Specialist Relationship Specialty Start Date End Date Vahe Espinoza MD [address] [place] [address] PCP - General 01/25/22
[2025-01-11] MEDS: oxyCODONE HCL (*CRX) 5 MG TAB IR PO (03:14)
[2025-01-11 03:37] VITALS: BP 130/72; PULSE 86; RESP 14; O2SAT 99
[2025-01-11] MEDS: diazePAM INJ (*CRX) 10 MG/2 ML SYRINGE 5 MG IM (04:07)
[2025-01-11 06:04] VITALS: BP 120/64; PULSE 100; RESP 18; O2SAT 99
== END 2025-01-11 06:15 | disposition home or self-care (01) ==
PROVIDERS: Emergency Provider Student in an Organized Health Care Education/Training Program; PCP Family Medicine
DX: M25.551 Pain in right hip (principal); C79.51 Secondary malignant neoplasm of bone; C34.90 Malignant neoplasm of unspecified part of unspecified bronchus or lung; Z87.891 Personal history of nicotine dependence
CPT/HCPCS: 73502; 96372; 99283; A9270; J3360

== ENCOUNTER 2025-01-31 08:04 | Outpatient (CLI) | payer MEDICARE, SELFPAY ==
--- NOTE | ~2025-01-31 | US_ITS ---
EXAMINATION: US venous doppler [facility] DATE: 01/31/2025 08:51 INDICATION: Lower limb swelling TECHNIQUE: Grayscale ultrasound images without and with compression and Doppler ultrasound images of the bilateral lower extremity veins were obtained. COMPARISON: None. FINDINGS: The visualized portions of right common femoral vein, profunda (deep) femoral vein, femoral vein, popliteal vein, posterior tibial veins, peroneal veins, gastrocnemius vein and greater saphenous vein outflow are patent. The visualized portions of left common femoral vein, profunda femoral vein, femoral vein, popliteal vein, posterior tibial veins, peroneal veins, gastrocnemius vein and greater saphenous vein outflow are patent. IMPRESSION: 1. No deep venous thrombosis in either lower limb. Reviewed, dictated and finalized at location A. ANICAL DESIGN DRAFTER
--- OUTSIDE RECORDS SUMMARY | 2025-01-31 08:11 | XMS_ITS | Clinical Summary ---
Author Organization [facility] Address [address] [place] [address] Phone Care Team Providers Care Pediatric Rn Name Role Phone Vahe Espinoza MD Primary Care Provider [phone] Allergies Active Allergy Reactions Criticality Noted Date Comments Metoclopramide Hcl Fever Low 12/26/2024 Medications LORazepam (ATIVAN) 1 mg tablet Take 1 mg by mouth every 6 hours as needed for Anxiety. Active prochlorperazin e maleate (COMPAZINE) 10 mg tablet Take 10 mg by mouth every 6 hours as needed for Nausea/Emesi s. Active oxyCODONE (ROXICODONE) 5 mg tabletIndicatio ns:Cancer, metastatic to bone (CMS/HCC) Take 1-2 tablets every 6 hours as needed for pain. Max daily dose 8 tablets 60 Tablet 5 Active oxyCODONE (ROXICODONE) 5 mg tablet Take 5 mg by mouth every 8 hours as needed for Pain. 5 01/17/20 25 Discontinue d(Alternate therapy prescribed) Active Problems No known active problems Encounters Date Type Department Care Team Description 01/21/2025 Telephone [facility] Pulmonology [facility] [address] [facility] [address] [place] [address] Dave Marcelo MD Procedure 01/16/2025 9:30 AM DAMAGE INSIDE ADJUSTER Office Visit [facility] Oncology and Hematology - [place] [address] [place] [phone] Lucy Jasmine MD Adenocarcinoma of lung, stage 4, left (CMS/HCC) (Primary Dx); Cancer, metastatic to bone (CMS/HCC) 01/16/2025 Refill [facility] Oncology and Hematology - [place] [id number] [place] [phone] Danika Merida MD Cancer, metastatic to bone (CMS/HCC) (Primary Dx) 01/08/2025 External Device Data STL ABSTRACTION Provider, Abstract 01/08/2025 External Device Data STL ABSTRACTION Provider, Abstract 01/08/2025 External Device Data ST[facility] ABSTRACTION Provider, Abstract 01/02/2025 8:09 AM DAMAGE INSIDE ADJUSTER Anesthesia Event [facility] CT Scan S [facility] [address] [place] [address] Vince Tang DO 01/02/2025 5:49 AM DAMAGE INSIDE ADJUSTER - 01/02/2025 9:59 AM DAMAGE INSIDE ADJUSTER Hospital Encounter [facility] [place] [address] [place] [address] Purvi Dillon MD 2, [facility] [[email or web address] Prepost [place], [facility] [address] Vince Tang DO 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) Discharge Disposition: Home or Self Care from Last 3 Months Family History Medical History Relation Name Comments No Known Problems Brother No Known Problems Father No Known Problems Mother Breast Cancer Sister Relation Name Status Comments Brother Alive Father Mother Sister Social History Tobacco Use Types Packs/Day Years Used Date Smoking Tobacco: Former Cigarettes 2 10 0 02/29/1980 - 02/28/1990 Smokeless Tobacco: Never Alcohol Use Standard Drinks/Week Comments Yes 0 (1 standard drink = 0.6 oz pur e alcohol) rarely Sex and Gender Information Value Date Recorded Sex Assigned at Not on file Legal Sex Male 6:50 PM DAMAGE INSIDE ADJUSTER Gender Identity Not on file Sexual Orientation Not on file Last Filed Vital Signs Vital Sign Reading Time Taken Comments Blood Pressure 136/65 01/16/2025 8:49 AM DAMAGE INSIDE ADJUSTER Pulse 103 01/16/2025 8:49 AM DAMAGE INSIDE ADJUSTER Temperature 36.8 C (98.2 F) 01/16/2025 8:49 AM DAMAGE INSIDE ADJUSTER Respiratory Rate 16 01/16/2025 8:49 AM DAMAGE INSIDE ADJUSTER Oxygen Saturation 97% 01/16/2025 8:49 AM DAMAGE INSIDE ADJUSTER Inhaled Oxygen Concentration - - Weight 66.1 kg (145 lb 12.8 oz) 01/16/2025 8:49 AM DAMAGE INSIDE ADJUSTER Height 180.3 cm (5' 11) 01/16/2025 8:49 AM DAMAGE INSIDE ADJUSTER Body Mass Index 20.33 01/16/2025 8:49 AM DAMAGE INSIDE ADJUSTER Plan of Treatment Upcoming Encounters Date Type Department Care Team (Late st Contact Info) Description 02/05/2025 8:30 AM DAMAGE INSIDE ADJUSTER Appointment [facility] Bronchoscopy [address] [facility] [address] [place] [address] 02/06/2025 7:00 AM DAMAGE INSIDE ADJUSTER Appointment [facility] [address] [place] [address] Lucy Jasmine MD [address] [place] [address] 02/06/2025 8:15 AM DAMAGE INSIDE ADJUSTER Appointment [facility] Nuclear Medicine [address] [place] [address] [id number] Lucy Jasmine MD [address] [place] [address] 02/13/2025 9:30 AM DAMAGE INSIDE ADJUSTER Office Visit [facility] Oncology and Hematology - [place] [address] [place] [address] Moises Oneil MD [address] [facility] [address] [place] [address] Health Maintenance Due Date Last Done Comments FIT-DNA Q 3 years 11/04/2003 FIT/FOBT Q [...] CT GUIDED BIOPSY Routine 01/02/2025 9:04 AM DAMAGE INSIDE ADJUSTER 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 DICTATION LOCATION: Location 1 - [facility] Narrative 01/02/2025 9:31 [address] GUIDANCE FOR TISSUE BIOPSY RIGHT ILIAC [...] iliac bone. DICTATION LOCATION: Location 1 - [facility] Purvi Dillon MD CT ORDERABLES Final Resul t * PATHOLOGY (01/02/2025 8:55 AM DAMAGE INSIDE ADJUSTER) CASE REPORT Surgical Pathology Report Case: [id number] Authorizing Provider: Mohinder Graham III, Collected: 01/02/2025 08:55 AM Ordering Location: [facility] St Received: 01/02/2025 11:[address] Pathologist: Fred Santoyo DO Specimen: Other, specify, Pelvis, R iliac 9:17 AM [facility] Graze [facility] FINAL DIAGNOSIS Bone, right iliac, biopsy: - Metastatic carcinoma, 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 9:17 AM [facility] Gra[facility] at 0917 DAMAGE INSIDE ADJUSTER GROSS DESCRIPTION Received in one container labeled Jonathon Davila and right iliac is a 1.8 x 0.3 cm cylindrical core of firm white-restrepo bone and a 2 semitranslucent white-de la fuente tissue fragments measuring 0.2 and 0.3 cm. The tissue is entirely submitted as follows: A1-bone core following decalcification; A2-soft tissue fragments. Cassette(s) decalcified in decal ll at the bench. [facility] 9:17 AM [facility] MICROSCOPIC DESCRIPTION The slides are labeled [id number] and Jonathon Davila. Sections of the right [...] metastatic adenocarcinoma of pulmonary origin. 9:17 AM [facility] CLINICAL INFORMATION CC: Purvi Dillon [phone] No Dx found. 9:17 AM [facility] COMMENT Special stain, immunohistochemical, and/or in situ hybridization results are interpreted with controls that demonstrate appropriate staining reactions. Note on use of immunohistochemistry reagents and in situ hybridization probes: These tests were developed and their performance characteristics determined by [facility] Department of Laboratory Medicine. It has not [...] part or completely in the following laboratories: [facility], CLIA #[id number] [address] [place] [address] [facility], [place] #[id number] [address] [place] [address] [facility], CLIA #[id number] [address] [place] [address] This report was created with the [employer] voice-activated dictation system. Inherent to this system is the possibility of syntax, grammar, punctuation and other errors that could impact the interpretation of the report. If there are interpretative questions about aspects of this report, please contact the performing pathologist. 9:17 AM [facility] Tissue (Other, specify) Collection / Unknown 01/02/2025 8:55 AM DAMAGE INSIDE ADJUSTER 01/02/2025 11:52 AM DAMAGE INSIDE ADJUSTER Comment:CC: Purvi Dillon [phone] us Mohinder Graham III, MD PATHOLOGY/CYTOLOGY O RDERABLES Final Result [facility] CLIA# [id number] [address] [place] [address] * (ABNORMAL) CBC WITH DIFFERENTIAL (01/02/2025 6:16 AM DAMAGE INSIDE ADJUSTER) WBC 10.7(H) 4.0 - 9.8 K/uL 01/02/2025 6:32 AM DAMAGE INSIDE ADJUSTER [facility] RBC 4.46(L) 4.50 - 5.40 M/uL 01/02/2025 6:32 AM DAMAGE INSIDE ADJUSTER [facility] HEMOGLOBIN 12.7(L) 13.6 - 16.5 g/dL 01/02/2025 6:32 AM DAMAGE INSIDE ADJUSTER [facility] HEMATOCRIT 38.5(L) 40.0 - 48.0 % 01/02/2025 6:32 AM DAMAGE INSIDE ADJUSTER [facility] MCV 86.3 82.0 - 99.0 fL 01/02/2025 6:32 AM DAMAGE INSIDE ADJUSTER [facility] MCH 28.5 27.2 - 32.6 pg 01/02/2025 6:32 AM DAMAGE INSIDE ADJUSTER [facility] MCHC 33.0 31.5 - 35.5 g/dL 01/02/2025 6:32 AM DAMAGE INSIDE ADJUSTER [facility] RDW 12.8 11.5 - 14.5 % 01/02/2025 6:32 AM DAMAGE INSIDE ADJUSTER [facility] RDW-STDEV 40.3 37.1 - 48.7 fL 01/02/2025 6:32 AM DAMAGE INSIDE ADJUSTER [facility] PLATELETS 300 140 - 350 K/uL 01/02/2025 6:32 AM DAMAGE INSIDE ADJUSTER [facility] MPV 8.8(L) 9.3 - 12.4 fL 01/02/2025 6:32 AM DAMAGE INSIDE ADJUSTER [facility] NEUTROPHILS 74 % 01/02/2025 6:32 AM DAMAGE INSIDE ADJUSTER [facility] - . RD LYMPHOCYTES 13 % 01/02/2025 6:32 AM DAMAGE INSIDE ADJUSTER [facility] MONOCYTES 12 % 01/02/2025 6:32 AM [facility] EOSINOPHILS 1 % 01/02/2025 6:32 AM [facility] BASOPHILS 1 % 01/02/2025 6:32 AM [facility] IMMATURE GRANULOCYTES 1 % 01/02/2025 6:32 AM [facility] Comment:IG (Immature Granulo cyte) count includes Metamyelocytes, Myelocytes, and Promyelocytes NEUTROPHIL ABSOLUTE 7.87(H) 1.90 - 7.00 K/uL 01/02/2025 6:32 AM [facility] LYMPHOCYTE ABSOLUTE 1.34 0.70 - 4.50 K/uL 01/02/2025 6:32 AM [facility] [address] MONOCYTE ABSOLUTE 1.23 0.10 - 1.30 K/uL 01/02/2025 6:32 AM [facility] EOSINOPHIL ABSOLUTE 0.13 0.00 - 0.70 K/uL 01/02/2025 6:32 AM [facility] Graze [facility] BASOPHILS ABSOLUTE 0.07 0.00 - 0.20 K/uL 01/02/2025 6:32 AM [facility] IMMATURE GRANULOCYTES ABSOLUTE 0.06(H) 0.00 - 0.03 K/uL 01/02/2025 6:32 AM [facility]ze [facility] [address] Blood Venipuncture / Unknown 01/02/2025 6:16 AM DAMAGE INSIDE ADJUSTER 01/02/2025 6:22 AM [facility] us Cy Mary MYLES HEMATOLOGY ORDERABLES Final Resu lt [id number] 5 [facility] [address] [place] [address] * (ABNORMAL) BASIC METABOLIC PANEL (01/02/2025 6:16 AM DAMAGE INSIDE ADJUSTER) SODIUM 138 136 - 145 mmol/L 01/02/2025 6:55 AM [facility] POTASSIUM 4.1 3.5 - 5.0 mmol/L 01/02/2025 6:55 AM [facility] LABORATORY [facility] CHLORIDE 98 98 - 107 mmol/L 01/02/2025 6:55 AM [facility]ORY [facility] CO2 28 22 - 29 mmol/L 01/02/2025 6:55 AM [facility] LABORATORY [facility] CALCIUM 9.6 8.6 - 10.2 mg/dL 01/02/2025 6:55 AM [facility] BUN 14 8 - 23 mg/dL 01/02/2025 6:55 AM [facility]ORY [facility] CREATININE 0.75 0.67 - 1.17 mg/dL 01/02/2025 6:55 AM [facility] GLUCOSE 112(H) 74 - 99 mg/dL 01/02/2025 6:55 AM [facility] GFR >60 >=60 mL/min/1.7 3 sq meter 01/02/2025 6:55 AM [facility]OR[facility]ORY [facility] Comment:eGFR calculated with 2020 CKD-EPI equation. Vegetarian diet, extremely high or low muscle mass, and may affect results. Cystatin C with Glomerular Filtration Rate is a suitable alternative for these patients. ANION GAP 12 8 - 16 mmol/L 01/02/2025 6:55 AM [facility]OR[facility]ORY [facility] Blood Venipuncture / Unknown 01/02/2025 6:16 AM DAMAGE INSIDE ADJUSTER 01/02/2025 6:22 AM [facility] us Cy Mary MYLES CHEMISTRY ORDERABLES Final Resul t [facility] Graze [facility] CLIA# [id number] [address] [place] [address] from Last 3 Months Insurance MEDICARE PART A AND B [facility] SUPP MEDICARE PART A AND B [facility] SUPP Care Teams Pediatric Rn Relationship Specialty Start Date End Date Vahe Espinoza MD [address] [facility] [address] [place] [address] PCP - General Family Practice 01/16/25
--- OUTSIDE RECORDS SUMMARY | 2025-01-31 08:11 | XMS_ITS | Clinical Summary ---
Author Organization [facility] Address [address] [place] [address] Care Team Providers Care Hygiene Coordinator Name Role Phone Vahe Espinoza MD Primary Care Provider Source Comments [facility],non-owned Affiliates and Associated Physician Practices is amultiple site organization consisting of ambulatory clinics and hospital sitesin [place], [place], [place] and [place]. This disclosure is being madepursuant to the Care Everywhere program and may not contain all information available regarding this patient. Last updated 17.[facility] Allergies No known active allergies Medications * [...] Comments Blood Pressure 148/89 03/12/2022 9:03 AM CONTACT PRINTER DRY FILM Pulse 57 03/12/2022 9:03 AM CONTACT PRINTER DRY FILM Temperature 36.2 C (97.2 F) 03/12/2022 9:03 AM CONTACT PRINTER DRY FILM Respiratory Rate - - Oxygen Saturation - - Inhaled Oxygen Concentration - - Weight 78.9 kg (174 lb) 03/12/2022 9:03 AM CONTACT PRINTER DRY FILM Height 180.3 cm (5' 11) 03/12/2022 9:03 AM CONTACT PRINTER DRY FILM Body Mass Index 24.27 03/12/2022 9:03 AM CONTACT PRINTER DRY FILM Plan of Treatment Health Maintenance Due Date [...] DEPRESSION SCREENING 02/29/2024 COVID-19 VACCINE (1 - 2024- season) 2024 INFLUENZA VACCINE (#1) 2024 2, [...] patient's age to complete this topic Insurance [facility] Care Teams Hygiene Coordinator Relationship Specialty Start Date End Date Vahe Espinoza MD [address] [place] [address] PCP - General 01/25/22
--- OUTSIDE RECORDS SUMMARY | 2025-01-31 08:11 | XMS_ITS | Clinical Summary ---
Author Organization [facility] Address [address] [place] [address] Care Team Providers Care Certified Nutritionist Name Role Phone Lorraine Ortiz MD Primary Care Provider [phone] Encounters Date Type Department Care Team Description 11/20/2024 4:14 PM CDT - 11/20/2024 11:59 PM CDT Hospital Encounter [facility] CT [address] [place] [address] Lorarine Ortiz MD Discharge Disposition: Home or Self [...] 8:33 PM Narrative 11/20/2024 8:37 PM CDT [address] [address] PROCEDURE: CT ABD+PEL WO CON HISTORY: Right [...] Procedure Note Sarah Deshpande MD - 11/20/[address] [address] PROCEDURE: CT ABD+PEL WO CON HISTORY: Right [...] 3:32 PM Narrative 11/30/2024 3:44 PM CDT [address] [address] EXAMINATION: CT LUMB SPINE WO CON HISTORY: [...] Diffuse disc bulge. Mild spinal canal stenosis. Woys-he-dglhwpyn bilateral neural foraminal stenosis. L4-L5: Facet arthropathy and ligamentous thickening. Diffuse disc bulge. Trace grade 1 anterolisthesis. Mild to moderate spinal canal stenosis. Severe bilateral neural foraminal stenosis. L5-S1: Facet arthropathy and ligamentous thickening. Diffuse disc bulge. No significant spinal canal stenosis. Moderate to severe bilateral neural foraminal stenosis. Procedure Note Octavio Rodney MD - 11/30/[address] [address] EXAMINATION: CT LUMB SPINE WO CON HISTORY: [...] thickening. Diffuse disc bulge.Mild spinal canal stenosis. Nqlh-vu-yyziraha bilateral neural foraminalstenosis. L4-L5: Facet arthropathy and [...] PROCEDURE ORDERABLES Final Result Performing Organization Address City/State/[facility] Co de Phone Number TOUCHWORKS TO EPIC CONVERSION from Last 3 Months or Most Recently Relevant to Health Maintenance Insurance MEDICARE [facility] Care Teams Certified Nutritionist Relationship Specialty Start Date End Date Lorraine Ortiz MD [address] [place] [address] PCP - General FAMILY PRACTICE 11/15/24
--- OUTSIDE RECORDS SUMMARY | 2025-01-31 08:11 | XMS_ITS | Clinical Summary ---
Author Organization [facility] Address [address] [address] Phone Care Team Providers Care Manager Search Name Role Phone Vahe Espinoza MD Primary Care Provider Social History Tobacco Use Types Packs/Day Years Used Date Smoking Tobacco: Never Assessed Sex and Gender Information Value Date Recorded Sex Assigned at Not on file Legal Sex Male 8:42 AM CDT Gender Identity Not on file Sexual Orientation Not on file Plan of Treatment Health Maintenance Due Date Last Done Comments Hepatitis C Virus (HCV) Screening 1960 TdaP Immunization 1960 Cologuard 11/04/2003 Immunochemical Fecal Occult Blood 11/04/2003 Pneumococcal Immunization (5 0+ years) (1 of 1 - PCV) 2008 Zoster Immunization (1 of 2) 2008 Influenza Immunization (#1) 2024 SARS-COV-2 Immunization ( season) 2024 Colonoscopy 09/26/2026 09/27/2019 Colorectal Cancer Screening 09/26/2026 Respiratory Syncytial Virus (RSV) Immunization (Adult) (1 - 1-dose 75+ series) 2033 Hepatitis B Immunization Aged Out No longer eligible based on patient's age to complete this topic Human Papillomavirus (HPV) Immunization Aged Out No longer eligible b ased on patient's age to complete this topic Meningococcal Immunization (ACWY) Aged Out No longer eligible based on patient's age to complete this topic Rotavirus Immunization Aged Out No lo nger eligible based on patient's age to complete this topic Procedures Procedure Name Priority Date/Time Associated Diagnosis Comments HM COLONOSCOPY Routine 09/27/2019 from Last 3 Months or Most Recently Relevant to Health Maintenance Results * COLONOSCOPY (09/27/2019) Ck Vazquez DO PROCEDURE/MINOR SURGICAL ORDERA BLES Final Result from Last 3 Months or Most Recently Relevant to Health Maintenance Care Teams Manager Search Relationship Specialty Start Date End Date Vahe Espinoza MD [address] [place] [address] PCP - General Family Medicine 09/04/19
== END 2025-01-31 08:05 | disposition home or self-care (01) ==
PROVIDERS: PCP Family Medicine; Visit Provider Student in an Organized Health Care Education/Training Program
DX: R60.0 Localized edema (principal)
CPT/HCPCS: 93970

== ENCOUNTER 2025-02-08 10:13 | Outpatient (CLI) | payer MEDICARE, SELFPAY | END 2025-02-08 10:14 | disposition home or self-care (01) | PROVIDERS: Visit Provider Internal Medicine Hematology & Oncology | DX: C79.51 Secondary malignant neoplasm of bone (principal) | CPT/HCPCS: 36415 ==

== ENCOUNTER 2025-02-27 10:22 | Outpatient (CLI) | payer MEDICARE, SELFPAY ==
[2025-02-27 10:42] LABS: Hematocrit 40.4 % (42.0-52.0); Hemoglobin 12.9 g/dL (14.0-18.0); Immature Granulocyte Percent A 0.6 % (0-0.5); Lymphocytes Absolute Auto 1.01 K/mm3 (0.9-3.2); Mean Corpuscular HGB Conc 31.9 g/dl (32-36); Mean Corpuscular Hemoglobin 28.2 pg (26-34); Mean Corpuscular Volume 88.4 fl (80-100); Nucleated Red Blood Cells Absolute Auto 0.000 K/mm3 (0.0-0.012); Nucleated Red Blood Cells Perc 0.0 % (0.0-0.2); Platelet Count Result 370 k/mm3 (150-375); Red Blood Count 4.57 M/mm3 (4.6-6.20); White Blood Count 10.7 K/mm3 (4.5-10.0)
[2025-02-27 10:55] LABS: INR 1.0; Prothrombin Time 13.2 Seconds (11.1-14.7)
[2025-02-27 10:56] LABS: Partial Thromboplastin Time 30.0 Seconds (22.3-36.8)
== END 2025-02-27 10:23 | disposition home or self-care (01) ==
LOC: ANHSURGERY 10:28
PROVIDERS: PCP Family Medicine; Visit Provider Surgery
DX: G89.3 Neoplasm related pain (acute) (chronic) (principal); Z01.818 Encounter for other preprocedural examination
CPT/HCPCS: 36415; 85025; 85610; 85730